=== PATIENT | male | born 1935 | race Caucasian/White ===

== ENCOUNTER 2017-01-03 14:05 | Emergency (ER) | payer MEDICARE, BC ==
[2017-01-03 15:27] LABS: BASOPHILS 0.1 % (0-2); EOSINOPHILS 0.3 % (0-7); HEMATOCRIT 41.7 % (42.0-54.0); HEMOGLOBIN 14.6 g/dL (13.5-17.5); IMMATURE GRANULOCYTES 0.2 % (0-5); LYMPHOCYTES 12.1 % (15-50); MCH 32.1 pg (26.0-34.0); MCV 91.6 fL (80.0-100.0); MEAN PLATELET VOLUME 10.5 fL (7.4-10.4); MONOCYTES 10.2 % (2-11); NEUTROPHILS 77.1 % (40-80); PLATELET COUNT 277 10x3/uL (130-400); RBC 4.55 10x6/uL (4.20-6.10); RDW 13.6 % (11.5-14.5); WBC 10.1 10x3/uL (4.8-10.8)
[2017-01-03 15:48] LABS: APPEARANCE CLEAR (CLEAR); BILIRUBIN NEGATIVE (NEGATIVE); COLOR DK YELLOW (YELLOW); GLUCOSE 50 mg/dL (NEGATIVE); KETONE NEGATIVE (NEGATIVE); NITRITE NEGATIVE (NEGATIVE); PROTEIN TRACE mg/dL (NEGATIVE); UROBILINOGEN NORMAL (NORMAL)
[2017-01-03 15:53] LABS: WHITE CELLS - URINE 0-5 /hpf (0-5)
[2017-01-03 15:54] LABS: BACTERIA FEW /hpf (NONE SEEN); EPITHELIAL CELLS 0-5 /hpf (0-5)
[2017-01-03 16:00] LABS: ALBUMIN 3.8 g/dL (3.4-5.0); ANION GAP 12.8 mmol/L (8-16); BILIRUBIN - TOTAL 0.64 mg/dL (0.2-1.3); CALCIUM 8.8 mg/dL (8.5-10.1); CARBON DIOXIDE 28.2 mmol/L (21.0-32.0); CREATININE - SERUM 1.2 mg/dL (0.6-1.3)
[2017-01-03 16:18] LABS: CREATINE KINASE 153 UL (21-232); TROPONIN-I 0.012 ng/mL (0.000-0.060)
== END 2017-01-03 17:02 | disposition home or self-care (01) ==
LOC: D.ER 14:05
PROVIDERS: Emergency Medicine; Nurse Practitioner Acute Care
DX: E87.6 Hypokalemia (principal); J81.0 Acute pulmonary edema; I44.1 Atrioventricular block, second degree; R00.1 Bradycardia, unspecified; F17.200 Nicotine dependence, unspecified, uncomplicated; F03.90 Unspecified dementia, unspecified severity, without behavioral disturbance, psychotic disturbance, mood disturbance, and anxiety

== ENCOUNTER 2017-01-08 15:11 | Emergency (ER) | payer MEDICARE, BC | END 2017-01-08 16:01 | disposition home or self-care (01) | LOC: D.ER 15:11 | DX: H11.32 Conjunctival hemorrhage, left eye (principal); F03.90 Unspecified dementia, unspecified severity, without behavioral disturbance, psychotic disturbance, mood disturbance, and anxiety; F17.200 Nicotine dependence, unspecified, uncomplicated ==

== ENCOUNTER 2017-05-02 20:06 | Inpatient (IN) | payer MEDICARE, BC ==
--- NOTE | ~2017-05-02 | PN ---
PATIENT:CHYNA DRAKE MEDICAL RECORD: [id number] LOCATION:[facility] ADMISSION DATE: 05/02/17 PROGRESS NOTE DATE OF SERVICE: 05/18/2017 SUBJECTIVE: The patient's case was discussed with staff. He has no new complaint. OBJECTIVE: The patient is in good behavioral control with limited insight about his condition. He tolerates his medicines well. ASSESSMENT: No change in diagnoses. PLAN: Current medicines and therapies have been reviewed and will be maintained. Long-term prognosis is guarded. The patient will be transitioned out of the hospital tomorrow morning if this level of improvement is maintained. TRANSINT:[id number] Voice Confirmation ID: [id number] DOCUMENT ID: [id number] KARLEE EPPS MD at 1337 CC: [id number] DICTATION DATE: 05/18/17 1455 THIMBLE PRESS OPERATOR: 05/18/17 1540 ADM IN [place] [id number] [place] [address]
--- NOTE | ~2017-05-02 | PN ---
PATIENT:CHYNA DRAKE MEDICAL RECORD: [id number] LOCATION:[facility] ADMISSION DATE: 05/02/17 PROGRESS NOTE DATE OF SERVICE: 05/19/2017 SUBJECTIVE: The patient's case was discussed with staff. He has no new complaint. OBJECTIVE: The patient is in good behavioral control, but severely impaired cognitively. ASSESSMENT: No change in diagnoses. PLAN: Brief supportive and educational interventions were made. Long-term prognosis is guarded. TRANSINT:[id number] Voice Confirmation ID: [id number] DOCUMENT ID: [id number] KARLEE EPPS MD at 1331 CC: [id number] DICTATION DATE: 05/19/17 1351 SOLAR INSTALLATION HELPER: 05/19/17 1445 DIS IN 05/19/[address] [address]
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
--- NOTE | ~2017-05-02 | PN ---
PATIENT:CHYNA DRAKE MEDICAL RECORD: [id number] LOCATION:[facility] ADMISSION DATE: 05/02/17 PROGRESS NOTE DATE OF SERVICE: 05/10/2017 SUBJECTIVE: The patient's case was discussed with staff. He has no new complaint. OBJECTIVE: The patient is in good behavioral control with poor insight about his condition. He is often agitated. ASSESSMENT: No change in diagnoses. PLAN: Current medicines have been reviewed and will be maintained. Long-term prognosis is guarded. I am going to give the patient Trilafon at a dose of 2 mg at bedtime to assist with his thought disorganization. TRANSINT:[id number] Voice Confirmation ID: [id number] DOCUMENT ID: [id number] KARLEE EPPS MD at 2008 CC: [id number] DICTATION DATE: 05/10/17 1524 TECHNICAL AIDE: 05/10/17 1619 ADM IN [place] [address] [place] [address]
--- NOTE | ~2017-05-02 | PN ---
PATIENT:CYHNA DARKE MEDICAL RECORD: [id number] LOCATION:[facility] ADMISSION DATE: 05/02/17 PROGRESS NOTE DATE OF SERVICE: 05/16/2017 SUBJECTIVE: The patient's case was discussed with staff. He has no new complaint. OBJECTIVE: The patient is in good behavioral control. He has poor insight about his situation. ASSESSMENT: No change in diagnoses. PLAN: Current medicines and therapies have been reviewed and will be maintained. I anticipate that he can be transitioned out of the hospital in a day or two if this level of improvement is maintained. TRANSINT:[id number] Voice Confirmation ID: [id number] DOCUMENT ID: [id number] KARLEE EPPS MD at 1418 CC: [id number] DICTATION DATE: 05/16/17 184 ENGRAVER: 05/17/17 0216 ADM IN [facility] [address] [place] [address] [id number]
--- NOTE | ~2017-05-02 | PN ---
PATIENT:CHYNA DRAEK MEDICAL RECORD: [id number] LOCATION:[facility] ADMISSION DATE: 05/02/17 PROGRESS NOTE DATE OF SERVICE: 05/07/2017 SUBJECTIVE: The patient's case was discussed with staff. He has no new complaint. OBJECTIVE: The patient is in good behavioral control with limited insight about his condition. He is severely impaired cognitively. ASSESSMENT: No change in diagnoses. PLAN: Supportive and educational interventions were made. Current medicines have been reviewed and will be maintained. TRANSINT:[id number] Voice Confirmation ID: [id number] DOCUMENT ID: [id number] KARLEE EPPS MD at 1430 CC: [id number] DICTATION DATE: 05/07/17 1148 EXHAUST AND MUFFLER FITTER: 05/07/17 1224 ADM IN [place] [place] [address]
--- NOTE | ~2017-05-02 | PN ---
PATIENT:CHYNA DRAKE MEDICAL RECORD: [id number] LOCATION:[facility] ADMISSION DATE: 05/02/17 PROGRESS NOTE DATE OF SERVICE: 05/06/2017 SUBJECTIVE: The patient's case was discussed with staff. He has no new complaint. OBJECTIVE: The patient is in good behavioral control with limited insight about his condition. He generally tolerates his medicines well. He was tested by Dr. Mariaa Nicole or more accurately she attempted to test him, but his dementia is so advanced he could not follow the instructions. Clearly, he has an advanced dementia and is in need of 56-kgdx-h-day supervision. TRANSINT:[id number] Voice Confirmation ID: [id number] DOCUMENT ID: [id number] KARLEE EPPS MD at 1139 CC: [id number] DICTATION DATE: 05/06/17 1330 FOOD COOKING MACHINE OPERATOR: 05/06/17 1940 ADM IN [facility] [address] [place] [address]
--- NOTE | ~2017-05-02 | PN ---
PATIENT:CHYNA DRAKE MEDICAL RECORD: [id number] LOCATION:[facility] ADMISSION DATE: 05/02/17 PROGRESS NOTE DATE OF SERVICE: 05/13/2017 SUBJECTIVE: No new complaint. OBJECTIVE: The patient is very pleasant on exam. 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 On exam, mood is euthymic. Affect is bland. Speech is somewhat tangential. Content of thought is negative for overt psychosis. Sensorium unchanged. ASSESSMENT: No change in diagnoses. PLAN: 1. Maintain current medication. 2. Continue supportive therapy. TRANSINT:[id number] Voice Confirmation ID: [id number] DOCUMENT ID: [id number] BERNADETTE BRIAN III, MD at 1733 CC: [id number] DICTATION DATE: 05/13/17 1432 DIRECTOR CHILD: 05/13/17 1517 ADM IN [place] [address] [place] [address]
--- NOTE | ~2017-05-02 | PN ---
PATIENT:CHYNA DRAKE MEDICAL RECORD: [id number] LOCATION:[facility] ADMISSION DATE: 05/02/17 PROGRESS NOTE DATE OF SERVICE: 05/17/2017 SUBJECTIVE: The patient's case was discussed with staff. He has no new complaint. OBJECTIVE: The patient is in good behavioral control with limited insight about his situation. He generally tolerates his medicines well. ASSESSMENT: No change in diagnoses. PLAN: Brief supportive and educational interventions were made. Long-term prognosis is guarded. TRANSINT:[id number] Voice Confirmation ID: [id number] DOCUMENT ID: [id number] KARLEE EPPS MD at 1426 CC: [id number] DICTATION DATE: 05/17/17 1432 INDEPENDENT MARKETING CONSULTANT: 05/17/17 1444 ADM IN [place] [address] [place] [address]
--- NOTE | ~2017-05-02 | PN ---
PATIENT:CHYNA DRAKE MEDICAL RECORD: [id number] LOCATION:[facility] ADMISSION DATE: 05/02/17 PROGRESS NOTE DATE OF SERVICE: 05/12/2017 SUBJECTIVE: The patient's case was discussed with staff. He has no new complaint. OBJECTIVE: The patient is in good behavioral control with limited insight about his condition. He does tolerate his medicines well. ASSESSMENT: No change in diagnoses. PLAN: Supportive and educational interventions were made. Long-term prognosis is guarded. TRANSINT:[id number] Voice Confirmation ID: [id number] DOCUMENT ID: [id number] KARLEE EPPS MD at 1344 CC: [id number] DICTATION DATE: 05/12/17 1236 METALLURGICAL ENGINEERING TECHNICIAN: 05/12/17 1253 ADM IN [place] [id number] [place] [id number]
--- NOTE | ~2017-05-02 | PN ---
PATIENT:CHYNA DRAKE MEDICAL RECORD: [id number] LOCATION:[facility] ADMISSION DATE: 05/02/17 PROGRESS NOTE DATE OF SERVICE: 05/04/2017 SUBJECTIVE: The patient's case was discussed with staff. He has no new complaint. OBJECTIVE: The patient is in good behavioral control, but very impaired cognitively. He denies any intent to harm himself or others. He really has no significant understanding of why he is here or what happened. ASSESSMENT: No change in diagnoses. PLAN: At this point, I am going to just watch the patient. He has been started on medication that I think will help his condition, but it really has not had an opportunity to be fully effective and he has not been significantly agitated. TRANSINT:[id number] Voice Confirmation ID: [id number] DOCUMENT ID: [id number] KARLEE EPPS MD at 1206 CC: [id number] DICTATION DATE: 05/04/17 1228 DECK MOLDER: 05/04/17 1236 ADM IN [place] [address] [place] [address]
--- NOTE | ~2017-05-02 | PN ---
PATIENT:CHYNA DRAKE MEDICAL RECORD: [id number] LOCATION:[facility] ADMISSION DATE: 05/02/17 PROGRESS NOTE DATE OF SERVICE: 05/14/2017 SUBJECTIVE: No new complaint. OBJECTIVE: The patient has been fairly cooperative. No problematic behavior reported. On exam, mood is euthymic. Affect is bland. Speech is tangential. Content of thought is negative for overt psychosis. Sensorium unchanged. ASSESSMENT: No change in diagnosis. PLAN: 1. Continue current medications. 2. Continue supportive therapy. TRANSINT:[id number] Voice Confirmation ID: [id number] DOCUMENT ID: [id number] BERNADETTE BRIAN III, MD at 1124 CC: [id number] DICTATION DATE: 05/14/17 1151 MEDICAL COLLECTOR: 05/14/17 1203 ADM IN [place] [address] [place] [address]
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
--- NOTE | ~2017-05-02 | PN ---
PATIENT:CHYNA DRAKE MEDICAL RECORD: [id number] LOCATION:[facility] ADMISSION DATE: 05/02/17 PROGRESS NOTE DATE OF SERVICE: 05/09/2017 SUBJECTIVE: The patient's case was discussed with staff. He has no new complaint. OBJECTIVE: The patient denies intent to harm himself or others. He tolerates his medicines well. He slept over 11 hours last night. ASSESSMENT: No change in diagnoses. PLAN: The patient's trazodone will be discontinued. His long-term prognosis is guarded. TRANSINT:[id number] Voice Confirmation ID: [id number] DOCUMENT ID: [id number] KARLEE EPPS MD at 1430 CC: [id number] DICTATION DATE: 05/09/17 1357 PULP OPERATOR: 05/09/17 1556 ADM IN [place] [address] [place] [address]
--- NOTE | ~2017-05-02 | PN ---
PATIENT:CHYNA DRAKE MEDICAL RECORD: [id number] LOCATION:[facility] ADMISSION DATE: 05/02/17 PROGRESS NOTE DATE OF SERVICE: 05/05/2017 SUBJECTIVE: The patient's case was discussed with staff. He has no new complaint. OBJECTIVE: The patient is in good behavioral control with limited insight about his condition. He generally tolerates his medicines well. ASSESSMENT: No change in diagnoses. PLAN: Supportive and educational interventions were made. Senior Care prognosis is guarded. I anticipate the patient can reasonably be transitioned out of the hospital soon if this level of improvement is maintained. TRANSINT:[id number] Voice Confirmation ID: [id number] DOCUMENT ID: [id number] KARLEE EPPS MD at 0912 CC: [id number] DICTATION DATE: 05/05/17 1222 REFINERY PIPELINE OPERATOR: 05/05/17 1231 ADM IN [place] [id number] [place] [id number]
[2017-05-02 21:52] LABS: BASOPHILS 0.4 % (0-2); EOSINOPHILS 3.2 % (0-7); HEMATOCRIT 35.6 % (42.0-54.0); HEMOGLOBIN 11.8 g/dL (13.5-17.5); IMMATURE GRANULOCYTES 0.1 % (0-5); LYMPHOCYTES 23.6 % (15-50); MCH 31.1 pg (26.0-34.0); MCHC 33.1 g/dL (31.0-37.0); MCV 93.7 fL (80.0-100.0); MEAN PLATELET VOLUME 10.2 fL (7.4-10.4); MONOCYTES 10.9 % (2-11); NEUTROPHILS 61.8 % (40-80); PLATELET COUNT 254 10x3/uL (130-400); RDW 14.3 % (11.5-14.5); WBC 7.6 10x3/uL (4.8-10.8)
[2017-05-02 21:57] LABS: APPEARANCE CLEAR (CLEAR); BILIRUBIN NEGATIVE (NEGATIVE); COLOR YELLOW (YELLOW); GLUCOSE NEGATIVE (NEGATIVE); KETONE NEGATIVE (NEGATIVE); NITRITE NEGATIVE (NEGATIVE); PROTEIN NEGATIVE (NEGATIVE); SPECIFIC GRAVITY 1.015 (1.005-1.020); UROBILINOGEN NORMAL (NORMAL)
[2017-05-02 22:02] LABS: ALBUMIN 3.6 g/dL (3.4-5.0); ANION GAP 11.5 mmol/L (8-16); BILIRUBIN - TOTAL 0.32 mg/dL (0.2-1.3); CALCIUM 8.8 mg/dL (8.5-10.1); CARBON DIOXIDE 29.1 mmol/L (21.0-32.0); CREATININE - SERUM 1.3 mg/dL (0.6-1.3); POTASSIUM - SERUM 3.6 mmol/L (3.5-5.1); PROTEIN - SERUM 6.7 g/dL (6.4-8.2)
[2017-05-02 22:16] LABS: UDS - AMPHET NEGATIVE QUAL (NEGATIVE); UDS - BARB NEGATIVE QUAL (NEGATIVE); UDS - BENZO NEGATIVE QUAL (NEGATIVE); UDS - COCAINE NEGATIVE QUAL (NEGATIVE); UDS - OPIATE NEGATIVE QUAL (NEGATIVE); UDS - PCP NEGATIVE QUAL (NEGATIVE); UDS - THC NEGATIVE QUAL (NEGATIVE)
[2017-05-03 06:12] VITALS: BMI 27.2
[2017-05-03 06:33] LABS: CHOL - HDL RATIO 3.4 ratio (2.3-4.9); LDL-HDL RATIO 2.1 ratio (1.5-3.5); THYROID STIMULATING HORMONE 1.68 uIU/mL (0.36-3.74)
[2017-05-03 08:57] VITALS: BP 123/66
[2017-05-03] MEDS ORDERED: TRAZODONE HCL50 MG PO (13:00)
[2017-05-03] MEDS ORDERED: NAMENDA10 MG PO (13:01)
[2017-05-03] MEDS ORDERED: KLOR-CON M2020 MEQ PO (13:02)
[2017-05-03] MEDS ORDERED: ARICEPT10 MG PO (13:06)
[2017-05-03] MEDS ORDERED: NORVASC5 MG PO (13:06)
[2017-05-03] MEDS ORDERED: FUROSEMIDE20 MG PO (13:07)
[2017-05-03] MEDS ORDERED: IPRATROPIUM BR42 MCG NASAL (13:09)
[2017-05-03] MEDS ORDERED: PROTONIX40 MG (13:10)
[2017-05-03] MEDS ORDERED: ZOLOFT50 MG PO (13:14)
[2017-05-03] MEDS ORDERED: LOVASTATIN20 MG PO (13:15)
[2017-05-03 13:41] VITALS: BMI 28.0
[2017-05-03 20:10] VITALS: BP 147/64
[2017-05-04 07:27] LABS: RAPID PLASMA REAGIN Non Reactive (Non Reactive); VITAMIN D 25 HYDROXY 34.4 ng/mL (30.0-100.0)
[2017-05-04 09:18] LABS: FOLATE (FOLIC ACID) - SERUM 13.8 ng/mL (>3.0)
[2017-05-04 09:52] VITALS: BP 110/58
[2017-05-04 19:45] VITALS: BP 110/53
[2017-05-05 09:51] VITALS: BP 142/80
[2017-05-05 23:34] VITALS: BP 133/72
[2017-05-06 09:56] VITALS: BP 139/68
[2017-05-06 20:08] VITALS: BP 146/70
[2017-05-07 07:40] VITALS: BP 162/81
[2017-05-07 19:57] VITALS: BP 140/70
[2017-05-08 07:34] VITALS: BP 166/55
[2017-05-08 23:56] VITALS: BP 161/57
[2017-05-09 08:00] VITALS: BP 129/72
[2017-05-09 19:16] VITALS: BP 138/48
[2017-05-10 07:00] VITALS: BP 125/74
[2017-05-10 19:52] VITALS: BP 159/71
[2017-05-11 10:24] VITALS: BP 169/68
[2017-05-11 14:28] VITALS: BMI 28.0
[2017-05-11 19:54] VITALS: BP 134/68
[2017-05-12 07:41] VITALS: BP 120/69
[2017-05-12 19:56] VITALS: BP 124/64
[2017-05-13 09:28] VITALS: BP 128/77
[2017-05-13 20:10] VITALS: BP 151/55
[2017-05-14 07:00] VITALS: BP 142/76
[2017-05-14 19:57] VITALS: BP 148/83
[2017-05-15 07:52] VITALS: BP 148/82
[2017-05-15 19:53] VITALS: BP 157/058
[2017-05-16 07:00] VITALS: BP 145/70
[2017-05-17 07:00] VITALS: BP 128/70
[2017-05-17] MEDS ORDERED: NORVASC10 MG PO (14:24)
[2017-05-17 20:08] VITALS: BP 130/73
[2017-05-18 10:47] VITALS: BP 141/62
[2017-05-18 20:06] VITALS: BP 137/75
[2017-05-19 09:31] VITALS: BP 129/68
== END 2017-05-19 15:54 | disposition home or self-care (01) | DRG 57 ==
LOC: D.ER 20:06 → D.PSYCH 22:55
PROVIDERS: Physician Assistant Medical; Psychiatry & Neurology Psychiatry
DX: G30.1 Alzheimer's disease with late onset (principal); F02.81 Dementia in other diseases classified elsewhere, unspecified severity, with behavioral disturbance; N17.9 Acute kidney failure, unspecified; Z72.0 Tobacco use; F32.9 Major depressive disorder, single episode, unspecified; Z74.09 Other reduced mobility; E78.5 Hyperlipidemia, unspecified; D64.9 Anemia, unspecified; K21.9 Gastro-esophageal reflux disease without esophagitis; I10 Essential (primary) hypertension

== ENCOUNTER 2017-06-08 16:40 | Inpatient (IN) | payer MEDICARE, BC ==
--- NOTE | ~2017-06-08 | PN ---
PATIENT:CHYNA DRAKE MEDICAL RECORD: [id number] LOCATION:[facility] ADMISSION DATE: 06/08/17 PROGRESS NOTE DATE OF SERVICE: 06/16/2017 SUBJECTIVE: The patient's case was discussed with staff. He has no new complaint. OBJECTIVE: The patient is in good behavioral control with limited insight about his condition. He tolerates his medicines well. ASSESSMENT: No change in diagnoses. PLAN: Current medicines and therapies have been reviewed and will be maintained. Long-term prognosis is guarded. TRANSINT:[id number] Voice Confirmation ID: [id number] DOCUMENT ID: [id number] KARLEE EPPS MD at 0804 CC: [id number] DICTATION DATE: 06/16/17 1418 NO BAKE MOLDER: 06/16/17 1431 ADM IN [facility] [address] [place] [address]
--- NOTE | ~2017-06-08 | PN ---
PATIENT:CHYNA DRAKE MEDICAL RECORD: [id number] LOCATION:[facility] ADMISSION DATE: 06/08/17 PROGRESS NOTE DATE OF SERVICE: 06/13/2017 SUBJECTIVE: The patient's case was discussed with staff. He has no new complaint. OBJECTIVE: The patient required p.r.n. medication today because of significant agitation. He has very limited insight about his condition. ASSESSMENT: No change in diagnoses. PLAN: Brief supportive and educational interventions were made. Custodial prognosis is guarded. TRANSINT:[id number] Voice Confirmation ID: [id number] DOCUMENT ID: [id number] KARLEE EPPS MD at 1344 CC: [id number] DICTATION DATE: 06/13/17 1434 SIEVE GRADER TENDER: 06/13/17 1451 ADM IN [place] [address] [place] [address]
--- NOTE | ~2017-06-08 | PN ---
PATIENT:CHYNA DRAKE MEDICAL RECORD: [id number] LOCATION:[facility] ADMISSION DATE: 06/08/17 PROGRESS NOTE DATE OF SERVICE: 06/17/2017 SUBJECTIVE: No new complaint noted. OBJECTIVE: Staff reports the patient is overall better. He is cooperative with medications. Family does desire to have him return home. On exam, mood was for the most part euthymic. Affect is reserved. Speech is rather terse. Content of thought is negative for overt psychosis. Sensorium unchanged. ASSESSMENT: No change in diagnosis. PLAN: 1. Continue current treatment. 2. Continue supportive therapy. TRANSINT:[id number] Voice Confirmation ID: [id number] DOCUMENT ID: [id number] BERNADETTE BRIAN III, MD at 1037 CC: [id number] DICTATION DATE: 06/17/17 1113 HYPERION ADMINISTRATOR: 06/17/17 1256 ADM IN [place] [address] [place] [id number]
--- NOTE | ~2017-06-08 | PN ---
PATIENT:CHYNA DRAKE MEDICAL RECORD: [id number] LOCATION:[facility] ADMISSION DATE: 06/08/17 PROGRESS NOTE DATE OF SERVICE: 06/22/2017 SUBJECTIVE: The patient's case was discussed with staff. He has no new complaint. OBJECTIVE: The patient is disorganized, but not aggressive. senior care placement is being considered by the family and I am supportive of that. There may be some financial obstacles that are going to be difficult, but obviously we will help with any of that in any reasonable way we can. Overall, the patient is better and is not showing evidence of dangerousness. Whether he goes home or back to the [place] [facility], I would anticipate he could be transitioned out of the hospital in a few days if this level of improvement is maintained. TRANSINT:[id number] Voice Confirmation ID: [id number] DOCUMENT ID: [id number] KARLEE EPPS MD at 1403 CC: [id number] DICTATION DATE: 06/22/17 1458 GAUGE MACHINE OPERATOR: 06/22/17 1612 ADM IN [facility] [address] [place] [address]
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
--- NOTE | ~2017-06-08 | PN ---
PATIENT:CHYNA DRAKE MEDICAL RECORD: [id number] LOCATION:[facility] ADMISSION DATE: 06/08/17 PROGRESS NOTE DATE OF SERVICE: 06/20/2017 SUBJECTIVE: The patient's case was discussed with staff. He has no new complaint. OBJECTIVE: The patient is in good behavioral control with limited insight about his condition. He is tolerating his medicines well. He is eating and sleeping reasonably well. ASSESSMENT: No change in diagnoses. PLAN: I anticipate the patient can be transitioned out of the hospital soon if this level of improvement is maintained. I am recommending 13-bfjf-k-day care and given the complex he has had with his family, it would seem to me that he would be more appropriate for him to be housed in a long-term care facility, but neither he or his family wish to see that happen. TRANSINT:[id number] Voice Confirmation ID: [id number] DOCUMENT ID: [id number] KARLEE EPPS MD at 1016 CC: [id number] DICTATION DATE: 06/20/171911 FAMILY SUPPORT SPECIALIST: 06/21/17 0342 ADM IN [facility] [address] [place] [id number]
--- NOTE | ~2017-06-08 | PN ---
PATIENT:CHYNA DRAKE MEDICAL RECORD: [id number] LOCATION:[facility] ADMISSION DATE: 06/08/17 PROGRESS NOTE DATE OF SERVICE: 06/27/2017 SUBJECTIVE: The patient's case was discussed with staff. He has no new complaint. OBJECTIVE: The patient is in good behavioral control with limited insight about his condition. He tolerates his medicines well. ASSESSMENT: No change in diagnoses. PLAN: Brief supportive and educational interventions were made. Snf prognosis is guarded. TRANSINT:[id number] Voice Confirmation ID: [id number] DOCUMENT ID: [id number] KARLEE EPPS MD at 0826 CC: [id number] DICTATION DATE: 06/27/17 1422 HOLLOW CORE DOOR FRAME ASSEMBLER: 06/27/17 1538 ADM IN [place] [id number] [place] [id number]
--- NOTE | ~2017-06-08 | PN ---
PATIENT:CHYNA DRAKE MEDICAL RECORD: [id number] LOCATION:[facility] ADMISSION DATE: 06/08/17 PROGRESS NOTE DATE OF SERVICE: 06/23/2017 SUBJECTIVE: The patient's case was discussed with staff. He has no new complaint. OBJECTIVE: The patient is in good behavioral control. He has limited insight about his condition. ASSESSMENT: No change in diagnoses. PLAN: Brief supportive and educational interventions were made. Assisted prognosis is guarded. I anticipate the patient can be transitioned to a halfway after the weekend assuming his level of improvement continues and appropriate placement can be found. TRANSINT:[id number] Voice Confirmation ID: [id number] DOCUMENT ID: [id number] KARLEE EPPS MD at 0841 CC: [id number] DICTATION DATE: 06/23/17 1423 PATIENT SUPPORT SPECIALIST: 06/23/17 1434 ADM IN [place] [address] [place] [id number]
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
--- NOTE | ~2017-06-08 | PN ---
PATIENT:CHYNA DRAKE MEDICAL RECORD: [id number] LOCATION:[facility] ADMISSION DATE: 06/08/17 PROGRESS NOTE DATE OF SERVICE: 06/28/2017 SUBJECTIVE: The patient's case was discussed with staff. He has no new complaint. OBJECTIVE: The patient is in good behavioral control. He has no active thoughts of harming himself or others. He generally tolerates his medicines well. ASSESSMENT: No change in diagnoses. PLAN: The patient will be maintained on current medicines. His discharge arrangements have been finalized. His long-term prognosis is guarded. TRANSINT:[id number] Voice Confirmation ID: [id number] DOCUMENT ID: [id number] KARLEE EPPS MD at 1651 CC: [id number] DICTATION DATE: 06/28/17 1411 BED SETTER: 06/28/17 1442 DIS IN 06/29/17 [facility] [address] [place] [address]
--- NOTE | ~2017-06-08 | PN ---
PATIENT:CHYNA DRAKE MEDICAL RECORD: [id number] LOCATION:[facility] ADMISSION DATE: 06/08/17 PROGRESS NOTE DATE OF SERVICE: 06/15/2017 SUBJECTIVE: The patient's case was discussed with staff. He has no new complaint. OBJECTIVE: The patient is in good behavioral control with limited insight about his condition. He tolerates his medicines well. ASSESSMENT: No change in diagnoses. PLAN: Supportive and educational interventions were made. Long-term prognosis is guarded. TRANSINT:[id number] Voice Confirmation ID: [id number] DOCUMENT ID: [id number] KARLEE EPPS MD at 1341 CC: [id number] DICTATION DATE: 06/15/17 1239 PROGRAM ADMIN: 06/15/17 1304 ADM IN [place] [id number] [place] [id number]
--- NOTE | ~2017-06-08 | PN ---
PATIENT:CHYNA DRAKE MEDICAL RECORD: [id number] LOCATION:[facility] ADMISSION DATE: 06/08/17 PROGRESS NOTE DATE OF SERVICE: 06/18/2017 SUBJECTIVE: The patient's case was discussed with staff. He has no new complaint. OBJECTIVE: The patient is in good behavioral control with limited insight about his condition. He tolerates his medicines well. ASSESSMENT: No change in diagnoses. PLAN: Brief supportive and educational interventions were made. I anticipate the patient can be transitioned to the long-term soon if this level of improvement is maintained. TRANSINT:[id number] Voice Confirmation ID: [id number] DOCUMENT ID: [id number] KARLEE EPPS MD at 1844 CC: [id number] DICTATION DATE: 06/18/17 1112 ANIMAL PHYSIOLOGY TEACHER: 06/19/17 0057 ADM IN [address] [address] [place] [address]
--- NOTE | ~2017-06-08 | PN ---
PATIENT:CHYNA DRAKE MEDICAL RECORD: [id number] LOCATION:[facility] ADMISSION DATE: 06/08/17 PROGRESS NOTE DATE OF SERVICE: 06/21/2017 SUBJECTIVE: The patient's case was discussed with staff. He has no new complaint. OBJECTIVE: The patient is in good behavioral control with limited insight about his condition. He generally tolerates his medicines well. ASSESSMENT: No change in diagnoses. PLAN: Brief supportive and educational interventions were made. Long-term prognosis is guarded. TRANSINT:[id number] Voice Confirmation ID: [id number] DOCUMENT ID: [id number] KARLEE EPPS MD at 1444 CC: [id number] DICTATION DATE: 06/21/17 1526 JEWEL OLIVING MACHINE OPERATOR: 06/21/17 1620 ADM IN [address] [id number] [place] [address]
--- NOTE | ~2017-06-08 | PN ---
PATIENT:CHYNA DRAKE MEDICAL RECORD: [id number] LOCATION:[facility] ADMISSION DATE: 06/08/17 PROGRESS NOTE DATE OF SERVICE: 06/14/2017 SUBJECTIVE: The patient's case was discussed with staff. He has no new complaint. OBJECTIVE: The patient is in good behavioral control, although he is severely impaired cognitively. He looks a little sleepy. 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 If it continues or he worsens, I will consider changing him to a different medication. TRANSINT:[id number] Voice Confirmation ID: [id number] DOCUMENT ID: [id number] KARLEE EPPS MD at 1218 CC: [id number] DICTATION DATE: 06/14/17 1456 SENIOR STAFF ACCOUNTANT: 06/14/17 1543 ADM IN [facility] [address] [place] [id number]
--- NOTE | ~2017-06-08 | PN ---
PATIENT:CHYNA DRAKE MEDICAL RECORD: [id number] LOCATION:[facility] ADMISSION DATE: 06/08/17 PROGRESS NOTE DATE OF SERVICE: 06/24/2017 SUBJECTIVE: No new complaint. OBJECTIVE: Overall, the patient is doing well. There is a possibility that family will pursue placement. On exam, mood is euthymic. Affect bland. Speech is terse. Content of thought unchanged. Sensorium unchanged. ASSESSMENT: No change in diagnosis. PLAN: 1. Continue current medication. 2. Continue supportive therapy. TRANSINT:[id number] Voice Confirmation ID: [id number] DOCUMENT ID: [id number] BERNADETTE BRIAN III, MD at 0703 CC: [id number] DICTATION DATE: 06/24/17 1006 MEDICAL INTERN: 06/24/17 1116 ADM IN [place] [address] [place] [address]
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
[~2017-06-08 16:40] MED LIST: ARICEPT10 MG PO; FUROSEMIDE20 MG PO; IPRATROPIUM BR42 MCG NASAL; KLOR-CON M2020 MEQ PO; LOVASTATIN20 MG PO; NAMENDA10 MG PO; NORVASC10 MG PO; NORVASC5 MG PO; PROTONIX40 MG; TRAZODONE HCL50 MG PO; ZOLOFT50 MG PO
[2017-06-08 22:43] VITALS: BMI 23.8
[2017-06-08 23:09] VITALS: BP 164/56; BMI 23.8
[2017-06-09 02:15] LABS: APPEARANCE CLEAR (CLEAR); BILIRUBIN NEGATIVE (NEGATIVE); COLOR YELLOW (YELLOW); GLUCOSE NEGATIVE (NEGATIVE); KETONE NEGATIVE (NEGATIVE); NITRITE NEGATIVE (NEGATIVE); PROTEIN NEGATIVE (NEGATIVE); SPECIFIC GRAVITY 1.005 (1.005-1.020); UROBILINOGEN NORMAL (NORMAL)
[2017-06-09 07:05] LABS: BASOPHILS 0.5 % (0-2); EOSINOPHILS 2.2 % (0-7); HEMATOCRIT 36.2 % (42.0-54.0); HEMOGLOBIN 12.1 g/dL (13.5-17.5); IMMATURE GRANULOCYTES 0.1 % (0-5); LYMPHOCYTES 23.8 % (15-50); MCH 31.3 pg (26.0-34.0); MCHC 33.4 g/dL (31.0-37.0); MCV 93.8 fL (80.0-100.0); MEAN PLATELET VOLUME 9.8 fL (7.4-10.4); MONOCYTES 10.4 % (2-11); PLATELET COUNT 252 10x3/uL (130-400); RBC 3.86 10x6/uL (4.20-6.10); WBC 8.5 10x3/uL (4.8-10.8)
[2017-06-09 07:39] LABS: ALBUMIN 3.6 g/dL (3.4-5.0); BILIRUBIN - TOTAL 0.43 mg/dL (0.2-1.3); CALCIUM 8.7 mg/dL (8.5-10.1); CARBON DIOXIDE 26.5 mmol/L (21.0-32.0); CHOL - HDL RATIO 3.1 ratio (2.3-4.9); CREATININE - SERUM 1.2 mg/dL (0.6-1.3); LDL-HDL RATIO 1.7 ratio (1.5-3.5); POTASSIUM - SERUM 4.5 mmol/L (3.5-5.1); PROTEIN - SERUM 6.6 g/dL (6.4-8.2); THYROID STIMULATING HORMONE 0.96 uIU/mL (0.36-3.74)
[2017-06-09 08:11] VITALS: BP 142/70
[2017-06-09 14:09] VITALS: Wt 83.9 kg
[2017-06-10 07:27] LABS: RAPID PLASMA REAGIN Non Reactive (Non Reactive)
[2017-06-10 10:17] LABS: VITAMIN D 25 HYDROXY 12.3 ng/mL (30.0-100.0)
[2017-06-10 21:20] VITALS: BP 149/65
[2017-06-11 12:49] VITALS: BP 148/78
[2017-06-11 19:08] LABS: FOLATE (FOLIC ACID) - SERUM QNS ng/mL (())
[2017-06-11 21:34] VITALS: BP 155/62
[2017-06-12 07:00] VITALS: BP 153/60
[2017-06-12 21:12] VITALS: BP 158/60
[2017-06-13 07:28] VITALS: BP 110/106
[2017-06-13 21:22] VITALS: BP 138/57
[2017-06-14 09:45] VITALS: BP 123/62
[2017-06-14 19:41] VITALS: BP 144/65
[2017-06-15 08:54] VITALS: BP 116/63
[2017-06-15 20:50] VITALS: BP 153/69
[2017-06-16 08:38] VITALS: BP 129/56
[2017-06-16 22:50] VITALS: BP 113/71
[2017-06-17 09:45] VITALS: BP 151/64
[2017-06-17 19:20] VITALS: BP 117/84
[2017-06-18 09:41] VITALS: BP 140/73
[2017-06-18 20:49] VITALS: BP 144/74
[2017-06-19 07:00] VITALS: BP 147/66
[2017-06-19 19:25] VITALS: BP 136/51
[2017-06-20 20:09] VITALS: BP 132/61
[2017-06-21 07:00] VITALS: BP 124/65
[2017-06-21 19:57] VITALS: BP 142/64
[2017-06-22 07:27] VITALS: BP 130/66
[2017-06-22 21:29] VITALS: BP 139/53
[2017-06-23 10:04] VITALS: BP 148/80
[2017-06-23 20:52] VITALS: BP 142/74
[2017-06-24 08:02] VITALS: BP 142/94
[2017-06-24 20:32] VITALS: BP 133/51
[2017-06-25 07:44] VITALS: BP 124/56
[2017-06-25 19:21] VITALS: BP 153/68
[2017-06-26 07:00] VITALS: BP 140/67
[2017-06-26 19:04] VITALS: BP 130/56
[2017-06-27 07:00] VITALS: BP 105/50
[2017-06-27 19:25] VITALS: BP 137/60
[2017-06-28 07:59] VITALS: BP 148/78
[2017-06-28] MEDS ORDERED: GEODON20 MG PO (14:12)
[2017-06-28] MEDS ORDERED: Mevacor PO (14:12)
[2017-06-28 22:00] VITALS: BP 128/53
[2017-06-29 08:17] VITALS: BP 123/64
== END 2017-06-29 14:00 | DRG 57 ==
LOC: D.ER 16:40 → D.PSYCH 20:55
PROVIDERS: Psychiatry & Neurology Psychiatry
DX: G30.1 Alzheimer's disease with late onset (principal); F02.81 Dementia in other diseases classified elsewhere, unspecified severity, with behavioral disturbance; N17.9 Acute kidney failure, unspecified; I10 Essential (primary) hypertension; E78.5 Hyperlipidemia, unspecified; Z74.09 Other reduced mobility; F32.9 Major depressive disorder, single episode, unspecified; K21.9 Gastro-esophageal reflux disease without esophagitis; D64.9 Anemia, unspecified; L85.3 Xerosis cutis; Z87.891 Personal history of nicotine dependence; Z87.828 Personal history of other (healed) physical injury and trauma

== ENCOUNTER 2019-02-28 12:17 | Inpatient (IN) | payer MEDICARE ==
[~2019-02-28] VITALS: Ht 180.3 cm; Wt 91.8 kg
[~2019-02-28 12:17] MED LIST changes: +GEODON20 MG PO; +Mevacor PO
[2019-02-28 13:00] LABS: BASOPHILS 0.3 % (0-2); EOSINOPHILS 3.2 % (0-7); HEMATOCRIT 40.6 % (42.0-54.0); HEMOGLOBIN 13.3 g/dL (13.5-17.5); IMMATURE GRANULOCYTES 0.3 % (0-5); LYMPHOCYTES 21.4 % (15-50); MCH 31.4 pg (26.0-34.0); MCHC 32.8 g/dL (31.0-37.0); MEAN PLATELET VOLUME 11.4 fL (7.4-10.4); MONOCYTES 10.4 % (2-11); NEUTROPHILS 64.4 % (40-80); PLATELET COUNT 246 10x3/uL (130-400); RBC 4.23 10x6/uL (4.20-6.10); RDW 15.3 % (11.5-14.5)
[2019-02-28 13:12] LABS: CALC OSMOLALITY 284 mosm/kg (275-300); CALCIUM 8.8 mg/dL (8.5-10.1); CARBON DIOXIDE 29.9 mmol/L (21.0-32.0); CHLORIDE - SERUM 107 mmol/L (98-107); CREATININE - SERUM 1.2 mg/dL (0.6-1.3); GLUCOSE 85 mg/dL (74-106); POTASSIUM - SERUM 4.7 mmol/L (3.5-5.1); SODIUM 140 mmol/L (136-145); UREA NITROGEN 32 mg/dL (7-18); eGFR NON AFRICAN AMERICAN 62 mL/min (90-120)
[2019-02-28 13:15] LABS: APTT 35.8 SECONDS (22.8-39.4); INR 1.04 (0.85-1.17); PROTIME 13.2 SECONDS (11.6-15.0)
[2019-02-28 13:34] LABS: ALBUMIN 3.3 g/dL (3.4-5.0); ALKALINE PHOSPHATASE 75 U/L (46-116); ALT (SGPT) 46 U/L (10-68); BILIRUBIN - TOTAL 0.32 mg/dL (0.2-1.3); CKMB 1.8 U/L (0.0-3.6); CREATINE KINASE 50 UL (21-232); MAGNESIUM - SERUM 2.2 mg/dL (1.8-2.4); PROTEIN - SERUM 6.6 g/dL (6.4-8.2)
[2019-02-28 13:35] LABS: TROPONIN-I < 0.017 ng/mL (0.000-0.060)
[2019-02-28 14:30] VITALS: BP 160/85
[2019-02-28 15:00] VITALS: BP 169/79
[2019-02-28 15:30] VITALS: BP 147/65
[2019-02-28 16:00] VITALS: BP 127/79
--- NOTE | 2019-02-28 19:17 | NUR ---
RECEIVED TO ROOM 2123 FROM ER VIA STRETCHER. PT HAS HX OF DEMENTIA, PT ALERT AND ORIENTED TO SELF ONLY. PTS AND GRAND DAUGHTER AT BED SIDE WITH PT HOWEVER HE DOESNT RECOGNIZE WHO THEY ARE. PLACED PT ON TELEMETRY, HR 74 SR.IV TO LEFT AC SL, SITE CLEAN AND DRY, NO REDDNESS OR SWELLING NOTED. PT REFUSING TO WEAR O2, RESPERATIONS UNLABORED. PT DENIES PAIN, COLA OVER ICE GIVEN AT PT REQUEST. RECLINER CHAIR TAKEN TO ROOM FOR TO SLEEP IN.
[2019-02-28] MEDS ORDERED: CALCIUM 600 +1 EAC3 PO (19:40)
[2019-02-28] MEDS ORDERED: DEPAKOTE ER500 MG PO (19:42)
[2019-02-28] MEDS ORDERED: LOVASTATIN20 MG PO (19:42)
[2019-02-28] MEDS ORDERED: IBUPROFEN400 MG PO (19:43)
[2019-02-28] MEDS ORDERED: CENTRUM MEN'S1 EACH PO (19:44)
[2019-02-28] MEDS ORDERED: NORVASC10 MG PO (19:46)
[2019-02-28] MEDS ORDERED: ACETAMINOPHEN325 MG PO (19:48)
[2019-02-28] MEDS ORDERED: VITAMIN D5000 UNIT PO (19:49)
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
--- NOTE | 2019-02-28 23:30 | NUR ---
PT INCONTINENT OF BOWEL, FIREWALL ADMINISTRATOR AND NURSE AT BED SIDE TO CLEAN PT UP, PT SWINGING FISTS AT STAFF AND TRYING TO CLIMB OUT OF BED TO HIT WHEN ATTEMPTS TO CALM PT. CALL PLACED TO LUIS FELIPE SAINI APN.
[2019-03-01 04:41] VITALS: Ht 180.3 cm; Wt 91.8 kg
[2019-03-01 05:50] LABS: BASOPHILS 0.4 % (0-2); EOSINOPHILS 2.8 % (0-7); HEMOGLOBIN 12.6 g/dL (13.5-17.5); IMMATURE GRANULOCYTES 0.2 % (0-5); LYMPHOCYTES 21.8 % (15-50); MCH 30.8 pg (26.0-34.0); MCHC 32.3 g/dL (31.0-37.0); MCV 95.4 fL (80.0-100.0); MEAN PLATELET VOLUME 11.5 fL (7.4-10.4); MONOCYTES 14.3 % (2-11); NEUTROPHILS 60.5 % (40-80); PLATELET COUNT 232 10x3/uL (130-400); RBC 4.09 10x6/uL (4.20-6.10); RDW 15.3 % (11.5-14.5); WBC 9.2 10x3/uL (4.8-10.8)
[2019-03-01 06:29] LABS: ANION GAP 10.4 mmol/L (8-16); BILIRUBIN - TOTAL 0.29 mg/dL (0.2-1.3); CARBON DIOXIDE 26.8 mmol/L (21.0-32.0); CREATININE - SERUM 1.2 mg/dL (0.6-1.3); POTASSIUM - SERUM 4.2 mmol/L (3.5-5.1); PROTEIN - SERUM 6.1 g/dL (6.4-8.2)
[2019-03-01 08:00] VITALS: BP 125/54
--- NOTE | 2019-03-01 10:49 | NUR ---
PT VERY AGITATED AND CONFUSED WHEN AWAKE. PT IS FINALLY RESTING QUIETLY IN BED. WILL ATTEMPT TO GIVE MORNING MEDICATIONS AND DO A BATH WITH WINDOWS ADMIN WHEN HE WAKES BACK UP. RR NONLABORED ON RA. NO IMMEDIATE NEEDS AT THIS TIME. WILL CTM.
[2019-03-01 12:00] VITALS: BP 142/60
--- NOTE | 2019-03-01 12:00 | NUR ---
PT AWAKE NOW AND BEING VERY COOPERATIVE. INTRODUCED MYSELF TO HIM PRIMARY RN FOR TODAYS SHIFT AND HE WAS VERY PLEASANTLY CONFUSED AND FOLLOWING ALL COMMANDS. PT SWALLOWED ALL OF HIS MORNING MEDICATIONS WITHOUT ANY DIFFICULTIES. I CUT UP PTS HAMBURGER AND ASSISTED HIM WITH LUNCH. HE IS EATING AND AT BEDSIDE TO ASSIST. NO CURRENT NEEDS AT THIS TIME. CL IN REACH, BED IN LOWEST, SIDE RAILS X2. WILL CTM.
--- NOTE | 2019-03-01 14:11 | NUR ---
PT ATTEMPTING TO GET OOB. UNABLE TO BE REDIRECTED OR FOLLOW COMMANDS. PT INCONTINENT OF BOWEL AND BLADDER. UPON TRYING TO CLEAN HIM HE STARTED TO YELL AND BECAME VERY AGITATED. PT COBATIVE AND WILL NOT FOLLOW COMMANDS. FINALLY CALMED HIM DOWN AND HAND TO HOLD HIS HANDS TO GET HIM TO COOPERATE. COMPLETE LINEN CHANGE PROVIDED. PULLED PT UP IN BED AND REPOSITIONED FOR COMFORT. PT NOW RESTING QUIETLY AND BEING CALM AND QUIET. AT BEDSIDE. NO CURRENT NEEDS. WILL CTM.
[2019-03-01 17:49] VITALS: BP 153/58
--- NOTE | 2019-03-01 18:45 | NUR ---
PT BEING AGITATED AND COMBATIVE. REFUSING TO ALLOW US TO CHANGE HIM. PT INCONTINENT OF BOWEL AND BLADDER. PROVIDED PTS PRN ATIVAN AND HE CALMED DOWN ENOUGH TO ALLOW US TO CLEAN HIM. COMPLETE BED LINEN CHANGE PROVIDED. REPOSITIONED PT UP IN BED. AT BEDSIDE NO FURTHER NEEDS AT THIS TIME. WILL PASS ON TO NIGHTSHIFT.
[2019-03-01 20:30] VITALS: BP 113/42
[2019-03-02] VITALS (8 sets, daily range): BP systolic 131–149; BP diastolic 48–68
--- NOTE | 2019-03-02 01:21 | NUR ---
RESTING WITH EYES CLOSED, RESPERATIONS EVEN, NO S/S DISTRESS NOTED.
--- NOTE | 2019-03-02 02:37 | NUR ---
I have reviewed this patient and I concur with the Shift Assessment completed by the Licensed Practical Nurse today this shift.
[2019-03-02 06:35] LABS: ANION GAP 11.6 mmol/L (8-16); CALCIUM 8.5 mg/dL (8.5-10.1); CARBON DIOXIDE 26.8 mmol/L (21.0-32.0); CREATININE - SERUM 1.2 mg/dL (0.6-1.3); POTASSIUM - SERUM 4.4 mmol/L (3.5-5.1)
[2019-03-02 06:52] LABS: BASOPHILS 0.2 % (0-2); EOSINOPHILS 3.3 % (0-7); HEMATOCRIT 39.2 % (42.0-54.0); HEMOGLOBIN 12.9 g/dL (13.5-17.5); IMMATURE GRANULOCYTES 0.2 % (0-5); LYMPHOCYTES 19.8 % (15-50); MCH 31.5 pg (26.0-34.0); MCHC 32.9 g/dL (31.0-37.0); MCV 95.8 fL (80.0-100.0); MEAN PLATELET VOLUME 11.9 fL (7.4-10.4); MONOCYTES 12.4 % (2-11); NEUTROPHILS 64.1 % (40-80); PLATELET COUNT 226 10x3/uL (130-400); RBC 4.09 10x6/uL (4.20-6.10); RDW 15.4 % (11.5-14.5); WBC 9.4 10x3/uL (4.8-10.8)
--- NOTE | 2019-03-02 07:45 | NUR ---
ASSESSMENT DONE. DENIES NEEDS
--- NOTE | 2019-03-02 14:24 | NUR ---
I have reviewed this patient and I concur with the Shift Assessment completed by the Licensed Practical Nurse today this shift.
--- NOTE | 2019-03-02 16:50 | NUR ---
AT SIDE. WITHOUT CHANGES OR DISTRESS NOTE AT THIS TIME
--- NOTE | 2019-03-02 17:38 | MORECARE ---
CASE MANAGEMENT DISCHARGE SUMMARY PATIENT: KODI DYE UNIT: [id number] ADM DATE: 03/01/19 AGE: 83 : 37 SEX: M ROOM/BED: D.2124 AUTHOR: HAYDENDOC PHYSICIAN: REFERRING PHYSICIAN: RANDY ÁLVAREZ MD DATE OF SERVICE: 03/02/19 Discharge Plan Patient Name: KODI DYE [facility] [facility] 1935 Planned Disposition: Nursing Facility [facility] Cert Anticipated Discharge Date: Discharge Date: Expected LOS: Initial Reviewer: [email or web address] Initial Review Date: 02/28/2019 Generated: 03/02/19 6:38 pm DCPIA - Discharge Planning Initial Assessment Updated by [email or web address]: Octaviano Glez on 03/02/19 5:33 pm * Is the patient Alert and Oriented? Yes * How many steps to enter\exit or inside your home? NONE * PCP DR MCNEAL * Pharmacy [facility] [place] * Preadmission Environment [facility] * Facility Name [facility] * ADLs Partial Dependent * Partial ADLs (Assistance needed) Bathing Medication Management * Equipment None * Other Equipment ALL MEDICAL EQUIPMENT PROVIDED BY FACILITY * List name and contact numbers for known caregivers / representatives who currently or will assist patient after discharge: DAVID DYE, SPOUSE, * Verbal permission to speak to the caregivers and representatives has been obtained from the patient. N/A * Community resources currently utilized None * Please name any agencies selected above. NONE * Additional services required to return to the preadmission environment? No * Can the patient safely return to the preadmission environment? Yes * Has this patient been hospitalized within the prior 30 days at any hospital? No Coverage Notice Reviewer: [id number] - [place] Notice Issued Date-Time: 02/28/2019 17:05 Notice Type: Medicare Outpatient Observation Notice Notice Delivered To: Family Member Relationship to Patient: Granddaughter Admissions Manager Rn Name: Kodi Dye Delivery Method: HAND - Hand Delivered Gracy Days: Prior Verbal Notification: Recipient Understood Notice: Yes Recipient Signature: Yes Med Rec Note Co-signed by Attending: Coverage Notice Comment: GRANT delivered to and signed by patient's granddaughter (POA). Original given to g.daughter and placed on chart. Patient Name: KODI DYE Page [phone] at 1738 All edits/amendments must be made on the electronic document DICTATION DATE: 03/02/191736 CUTLET MAKER PORK: SHADY 03/02/191736 RPT#: [id number] DC DATE: STATUS: ADM IN [facility] [address] [place] [address] END OF REPORT
--- NOTE | 2019-03-02 17:45 | MORECARE ---
CASE MANAGEMENT DISCHARGE SUMMARY PATIENT: KODI DYE UNIT: [id number] ADM DATE: 03/01/19 AGE: 83 : 37 SEX: M ROOM/BED: D.8939 AUTHOR: HAYDENDOC PHYSICIAN: REFERRING PHYSICIAN: RANDY ÁLVAREZ MD DATE OF SERVICE: 03/02/19 Discharge Plan Patient Name: KODI DYE [facility] [facility] 1935 Planned Disposition: Nursing Facility [facility] Cert Anticipated Discharge Date: Discharge Date: Expected LOS: Initial Reviewer: [email or web address] Initial Review Date: 02/28/2019 Generated: 03/02/19 6:44 pm Comments DCP- Discharge Planning Updated by [email or web address]: Octaviano Glez on 03/02/19 4:[address] Patient Name: KODI DYE Admission Status: ER Accout number: [id number] Admission Date: 03-01-2019 : 1935 Admission Diagnosis: Attending: RANDY ÁLVAREZ Current LOS: 1 Anticipated DC Date: Planned Disposition: Nursing Facility [facility] Cert Primary Insurance: MEDICARE A & B PLANNED EXERNAL PROVIDER: [place], LONG TERM CARE MEDICAID BED Discharge Planning Comments: CM MET WITH PT AND SPOSUE IN ROOM TO DISCUSS DISCHARGE PLANNING AND NEEDS. PT CONFUSED, SPOUSE REPORTS PT HAVING DEMENTIA. REPORTS PT LIVES AT [place] IN SNF CARE AND WILL RETURN THERE AT DISCHARGE. PT WAS UP AND DANCING PRIOR TO ADMISSION AND NOW CANNOT STAND WITH THERAPY. PT WAS APPROVED FOR [facility]% DISABILITY WITH [facility] AND THEY HAVE NOT ACCESSED [place] BENEFITS OF YET BUT IF ABLE, WOULD LIKE PT ON [place] TRANSFER LIST IF THEY WILL PAY COPAY. CHOICE SIGNED FOR [facility] TERM CARE RETURN. CALLED [place] EXPEDITOR, NENITA, , WHO CHECKED LOCAL AND NATIONAL DATABASE AND COULD NOT LOCATE PT AT ALL. NENITA WILL FAX REGISTRATION PAPERS FOR SPOUSE TO FILL OUT AND RETURN TO [place] TO AT NURSES STATION FAX. OF TIME OF CM'S END OF SHIFT, THE PAPERS HAVE NOT COME THROUGH FAX. PT IS NOT ON THE [place] TRANSFER LIST. FOR DISCHARGE, FAX DISCHARGE INFORMATION TO [place] AT [phone], NURSE REPORT TO BE CALLED TO [facility] AT [phone]. [facility] TO ARRANGE VAN TRANSPORTATION FOR DISCHARGE IF PT IS ABLE TO TRANSFER AND SIT SAFELY FOR TRANSPORT. Etl Manager: Octaviano Glez DCPIA - Discharge Planning Initial Assessment Updated by [id number]: Octaviano Glez on 03/02/19 5:33 pm * Is the patient Alert and Oriented? Yes * How many steps to enter\exit or inside your home? NONE * PCP DR MCNEAL * Pharmacy [facility] IN [place] * Preadmission Environment [facility] * Facility Name [facility] * ADLs Partial Dependent * Partial ADLs (Assistance needed) Bathing Medication Management * Equipment None * Other Equipment ALL MEDICAL EQUIPMENT PROVIDED BY FACILITY * List name and contact numbers for known caregivers / representatives who currently or will assist patient after discharge: DAVID DYE, SPOUSE, * Verbal permission to speak to the caregivers and representatives has been obtained from the patient. N/A * Community resources currently utilized None * Please name any agencies selected above. NONE * Additional services required to return to the preadmission environment? No * Can the patient safely return to the preadmission environment? Yes * Has this patient been hospitalized within the prior 30 days at any hospital? No Coverage Notice Reviewer: [id number] Naima Camp Notice Issued Date-Time: 02/28/2019 17:05 Notice Type: Medicare Outpatient Observation Notice Notice Delivered To: Family Member Relationship to Patient: Granddaughter Wire Strander Name: Kodi Dye Delivery Method: HAND - Hand Delivered Gracy Days: Prior Verbal Notification: Recipient Understood Notice: Yes Recipient Signature: Yes Med Rec Note Co-signed by Attending: Coverage Notice Comment: GRANT delivered to and signed by patient's granddaughter (POA). Original given to g.daughter and placed on chart. Reviewer: [id number] - Octaviano Glez Notice Issued Date-Time: 03/02/2019 17:05 Notice Type: Patient Choice Letter Notice Delivered To: Family Member Relationship to Patient: Spouse Wire Strander Name: DAVID DYE Delivery Method: HAND - Hand Delivered Gracy Days: Prior Verbal Notification: Recipient Understood Notice: Yes Recipient Signature: Yes Med Rec Note Co-signed by Attending: Coverage Notice Comment: MAGALIS Last DP export: 03/02/19 4:38 Patient Name: KODI DYE Page [phone] at 1745 All edits/amendments must be made on the electronic document DICTATION DATE: 03/02/191743 BARREL FINISHER: SHADY 03/02/191743 RPT#: [id number] DC DATE: STATUS: ADM IN [facility] [address] [place] [address] END OF REPORT
--- NOTE | 2019-03-02 19:10 | NUR ---
REPORT RECEIVED. PT LAYING IN BED RR EVEN AND UNLABORED ON RA. NO S/SX OF DISTRESS NOTED AT THIS TIME. AT BEDSIDE. PT ALERT BUT UNABLE TO STATE WHERE HE IS OR WHY. NO NEEDS EXPRESSED AT THIS TIME. SRX2, BED ALARM ON. CALL LIGHT IN REACH. WILL CTM.
[2019-03-03] VITALS: BP 133/56
--- NOTE | 2019-03-03 02:26 | NUR ---
PTS HEART RATE KEEPS DROPPING TO 30's AND THEN BACK UP TO 60"S. NO S/SX OF DISTRESS NOTED.
[2019-03-03 04:00] VITALS: BP 137/61
[2019-03-03 04:55] LABS: BASOPHILS 0.4 % (0-2); EOSINOPHILS 3.8 % (0-7); HEMATOCRIT 40.3 % (42.0-54.0); HEMOGLOBIN 13.1 g/dL (13.5-17.5); IMMATURE GRANULOCYTES 0.4 % (0-5); MCH 30.8 pg (26.0-34.0); MCHC 32.5 g/dL (31.0-37.0); MCV 94.6 fL (80.0-100.0); MEAN PLATELET VOLUME 12.8 fL (7.4-10.4); MONOCYTES 11.7 % (2-11); NEUTROPHILS 62.7 % (40-80); PLATELET COUNT 122 10x3/uL (130-400); RBC 4.26 10x6/uL (4.20-6.10); RDW 15.3 % (11.5-14.5); WBC 8.5 10x3/uL (4.8-10.8)
[2019-03-03 05:13] LABS: CALC OSMOLALITY 281 mosm/kg (275-300); CALCIUM 8.7 mg/dL (8.5-10.1); CARBON DIOXIDE 26.3 mmol/L (21.0-32.0); CHLORIDE - SERUM 106 mmol/L (98-107); GLUCOSE 80 mg/dL (74-106); POTASSIUM - SERUM 4.3 mmol/L (3.5-5.1); SODIUM 139 mmol/L (136-145); UREA NITROGEN 26 mg/dL (7-18); eGFR NON AFRICAN AMERICAN 76 mL/min (90-120)
--- NOTE | 2019-03-03 07:30 | NUR ---
ALERT, BUT CONFUSED AT TIMES. PT IS A DNR. TELEMERTY SHOWS HR FROM 30 TO 70. O2 AT 2 L/M PER NC. LEFT AC SL. AT BEDSIDE AND BED ALARM ON PT. PT IS A DNR. LEFT AC SL. SR UP WITH CALL LIGHT IN REACH
[2019-03-03 09:05] VITALS: BP 131/56
[2019-03-03 12:41] VITALS: BP 126/58
--- NOTE | 2019-03-03 14:28 | NUR ---
I have reviewed this patient and I concur with the Shift Assessment completed by the Licensed Practical Nurse today this shift.
[2019-03-03 16:11] VITALS: BP 115/45
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
--- NOTE | 2019-03-03 20:00 | NUR ---
PIV OUT TO LEFT AC, CATHETER TIP INTACT. RESITED 22G TO LEFT HAND X1 ATTEMPT. PT TOLERATED WELL.
--- NOTE | 2019-03-04 03:34 | NUR ---
WAS ABLE TO PUT TELEMETRY BACK ON PT. PT RESTING QUIETLY NOW. AT BEDSIDE AND STATES THAT PT IS COUGHING. NO FURTHER NEEDS EXPRESSED. WILL CTM.
[2019-03-04 04:45] VITALS: BP 129/51
[2019-03-04 05:29] LABS: BASOPHILS 0.2 % (0-2); EOSINOPHILS 3.1 % (0-7); HEMATOCRIT 38.2 % (42.0-54.0); HEMOGLOBIN 12.6 g/dL (13.5-17.5); IMMATURE GRANULOCYTES 0.2 % (0-5); LYMPHOCYTES 20.4 % (15-50); MCH 31.1 pg (26.0-34.0); MCV 94.3 fL (80.0-100.0); MEAN PLATELET VOLUME 11.6 fL (7.4-10.4); MONOCYTES 14.3 % (2-11); NEUTROPHILS 61.8 % (40-80); RBC 4.05 10x6/uL (4.20-6.10); WBC 9.2 10x3/uL (4.8-10.8)
[2019-03-04 05:31] LABS: PLATELET COUNT 239 10x3/uL (130-400)
[2019-03-04 05:45] LABS: ANION GAP 11.6 mmol/L (8-16); CALCIUM 8.2 mg/dL (8.5-10.1); CARBON DIOXIDE 25.8 mmol/L (21.0-32.0); CREATININE - SERUM 1.1 mg/dL (0.6-1.3)
[2019-03-04 05:56] LABS: POTASSIUM - SERUM 3.4 mmol/L (3.5-5.1)
--- NOTE | 2019-03-04 12:10 | MORECARE ---
CASE MANAGEMENT DISCHARGE SUMMARY PATIENT: KODI DYE UNIT: [id number] ADM DATE: 03/01/19 AGE: 84 : 37 SEX: M ROOM/BED: D.5614 AUTHOR: HERLINDA BLAKE PHYSICIAN: REFERRING PHYSICIAN: RANDY ÁLVAREZ MD DATE OF SERVICE: 03/04/19 Discharge Plan Patient Name: KODI DYE Facility: [facility]:[place] : 1935 Planned Disposition: Nursing Facility [facility] Cert Anticipated Discharge Date: Discharge Date: Expected LOS: Initial Reviewer: [id number] Initial Review Date: 02/28/2019 Generated: 03/04/19 1:10 pm Comments DCP- Discharge Planning Updated by [id number]: Nancy Trinh on 03/04/19 11:[address] Patient Name: KODI DYE Encounter No: [id number] : 1935 Primary Insurance: MEDICARE A & B Anticipated DC Date: Planned Disposition: Nursing Facility [facility] Cert External Planned Provider: : DCP follow-up note: Patient and family in agreement with discharge plan. No changes to plan. FOR DISCHARGE, FAX DISCHARGE INFORMATION TO [facility] AT [phone], NURSE REPORT TO BE CALLED TO CIARA ODEN AT [facility] TO [phone]. DEAN AT [facility] IS ARRANGING VAN TRANSPORTATION FOR DISCHARGE. SHE WILL CALL US BACK WITH A TIME. WILL BE AFTER 2PM. Case management will follow and assist as needed. Nancy Trinh DCP- Discharge Planning Updated by [id number]: Octaviano Glez on 03/02/19 4:[address] Patient Name: KODI DYE Admission Status: ER Accout number: [id number] Admission Date: 03-01-2019 : 1935 Admission Diagnosis: Attending: RANDY ÁLVAREZ Current LOS: 1 Anticipated DC Date: Planned Disposition: Nursing Facility [facility] Cert Primary Insurance: MEDICARE A & B PLANNED EXERNAL PROVIDER: [place], LONG TERM CARE MEDICAID BED Discharge Planning Comments: CM MET WITH PT AND SPOSUE IN ROOM TO DISCUSS DISCHARGE PLANNING AND NEEDS. PT CONFUSED, SPOUSE REPORTS PT HAVING DEMENTIA. REPORTS PT LIVES AT [facility] AND WILL RETURN THERE AT DISCHARGE. PT WAS UP AND DANCING PRIOR TO ADMISSION AND NOW CANNOT STAND WITH THERAPY. PT WAS APPROVED FOR 100% DISABILITY WITH [facility] AND THEY HAVE NOT ACCESSED [place] BEN[place] OF YET BUT IF ABLE, WOULD LIKE PT ON [place] TRANSFER LIST IF THEY WILL PAY COPAY. CHOICE SIGNED FOR [facility] RETURN. CM CALLED [place] EXPEDITOR, NENITA, , WHO CHECKED LOCAL AND NATIONAL DATABASE AND COULD NOT LOCATE PT AT ALL. NENITA WILL FAX REGISTRATION PAPERS FOR SPOUSE TO FILL OUT AND RETURN TO AL TO AT NURSES STATION FAX. OF TIME OF 'S END OF SHIFT, THE PAPERS HAVE NOT COME THROUGH FAX. PT IS NOT ON THE [place] TRANSFER LIST. FOR DISCHARGE, FAX DISCHARGE INFORMATION TO [facility] AT [phone], NURSE REPORT TO BE CALLED TO [facility] AT [phone]. [facility] TO ARRANGE VAN TRANSPORTATION FOR DISCHARGE IF PT IS ABLE TO TRANSFER AND SIT SAFELY FOR TRANSPORT. Wind Turbine Mechanic: Octaviano Glze DCPIA - Discharge Planning Initial Assessment Updated by [id number]: Octaviano Glez on 03/02/19 5:33 pm * Is the patient Alert and Oriented? Yes * How many steps to enter\exit or inside your home? NONE * PCP DR MCNEAL * Pharmacy [facility] [place] * Preadmission Environment [facility] * Facility Name [facility] * ADLs Partial Dependent * Partial ADLs (Assistance needed) Bathing Medication Management * Equipment None * Other Equipment ALL MEDICAL EQUIPMENT PROVIDED BY FACILITY * List name and contact numbers for known caregivers / representatives who currently or will assist patient after discharge: DAVID DYE, SPOUSE, * Verbal permission to speak to the caregivers and representatives has been obtained from the patient. N/A * Community resources currently utilized None * Please name any agencies selected above. NONE * Additional services required to return to the preadmission environment? No * Can the patient safely return to the preadmission environment? Yes * Has this patient been hospitalized within the prior 30 days at any hospital? No Coverage Notice Reviewer: [id number] - Ling Camp Notice Issued Date-Time: 02/28/2019 17:05 Notice Type: Medicare Outpatient Observation Notice Notice Delivered To: Family Member Relationship to Patient: Granddaughter Overcoil Stepper Name: Kodi Dye Delivery Method: HAND - Hand Delivered Gracy Days: Prior Verbal Notification: Recipient Understood Notice: Yes Recipient Signature: Yes Med Rec Note Co-signed by Attending: Coverage Notice Comment: GRANT delivered to and signed by patient's granddaughter (POA). Original given to g.daughter and placed on chart. Reviewer: [id number] - Octaviano Glez Notice Issued Date-Time: 03/02/2019 17:05 Notice Type: Patient Choice Letter Notice Delivered To: Family Member Relationship to Patient: Spouse Overcoil Stepper Name: DAVID DYE Delivery Method: HAND - Hand Delivered Gracy Days: Prior Verbal Notification: Recipient Understood Notice: Yes Recipient Signature: Yes Med Rec Note Co-signed by Attending: Coverage Notice Comment: MAGALIS Last DP export: 03/02/19 4:45 Patient Name: KODI DYE Page [id number] at 1210 All edits/amendments must be made on the electronic document DICTATION DATE: 03/04/19 1210 SENIOR COMMISSIONS ANALYST: SHADY 03/04/19 1210 RPT#: [id number] DC DATE: STATUS: ADM IN [facility] [address] [place] [address] END OF REPORT
--- NOTE | 2019-03-04 13:18 | NUR ---
RESTING IN BED WITH EYES CLOSED. SPOUSE AT BEDSIDE. REPORT CALLED TO CECILLE GONZALEZ AT [facility]. TRANSPORTATION EXPECTED TO ARRIVE AFTER 1400. CONTINUE SAFETY PRECAUTIONS AND PLAN OF CARE.
--- NOTE | 2019-03-04 15:55 | NUR ---
CONFUSED. SPOUSE AT BEDSIDE. DC LT HAND AND LT AC IV TIP INTACT. [facility] ARRIVES. ASSIST TO WHEELCHAIR. REMAINS FREE FROM INJURY.
--- NOTE | 2019-03-05 08:58 | MORECARE ---
CASE MANAGEMENT DISCHARGE SUMMARY PATIENT: KODI DYE UNIT: [id number] ADM DATE: 03/01/19 AGE: 84 : 37 SEX: M ROOM/BED: D.6679 AUTHOR: HERLINDA BLAKE PHYSICIAN: REFERRING PHYSICIAN: RANDY ÁLVAREZ MD DATE OF SERVICE: 03/05/19 Discharge Plan Patient Name: KODI DYE Facility: [facility]:[place] : 1935 Planned Disposition: Nursing Facility [facility] Cert Anticipated Discharge Date: 03/04/19 Discharge Date: 03/04/2019 Expected LOS: 3 Initial Reviewer: [id number] Initial Review Date: 02/28/2019 Generated: 03/05/19 9:57 am Comments DCP- Discharge Planning Updated by [id number]: Nancy Trinh on 03/04/19 11:[address] Patient Name: KODI DYE Encounter No: [id number] : 1935 Primary Insurance: MEDICARE A & B Anticipated DC Date: Planned Disposition: Nursing Facility [facility] Cert External Planned Provider: : DCP follow-up note: Patient and family in agreement with discharge plan. No changes to plan. FOR DISCHARGE, FAX DISCHARGE INFORMATION TO [facility] AT [phone], NURSE REPORT TO BE CALLED TO CIARA ODEN AT [facility] TO [phone]. DEAN AT [facility] IS ARRANGING VAN TRANSPORTATION FOR DISCHARGE. SHE WILL CALL US BACK WITH A TIME. WILL BE AFTER 2PM. Case management will follow and assist as needed. Nancy Trinh DCP- Discharge Planning Updated by [id number]: Octaviano Glez on 03/02/19 4:[address] Patient Name: KODI DYE Admission Status: ER Accout number: [id number] Admission Date: 03-01-2019 : 1935 Admission Diagnosis: Attending: RANDY ÁLVAREZ Current LOS: 1 Anticipated DC Date: Planned Disposition: Nursing Facility [facility] Cert Primary Insurance: MEDICARE A & B PLANNED EXERNAL PROVIDER: [place], LONG TERM CARE MEDICAID BED Discharge Planning Comments: CM MET WITH PT AND SPOSUE IN ROOM TO DISCUSS DISCHARGE PLANNING AND NEEDS. PT CONFUSED, SPOUSE REPORTS PT HAVING DEMENTIA. REPORTS PT LIVES AT [facility] IN [facility] AND WILL RETURN THERE AT DISCHARGE. PT WAS UP AND DANCING PRIOR TO ADMISSION AND NOW CANNOT STAND WITH THERAPY. PT WAS APPROVED FOR 100% DISABILITY WITH [facility] AND THEY HAVE NOT ACCESSED [place] BENEFITS OF YET BUT IF ABLE, WOULD LIKE PT ON [place] TRANSFER LIST IF THEY WILL PAY COPAY. CHOICE SIGNED FOR [facility] RETURN. CM CALLED [place] EXPEDITOR, NENITA, , WHO CHECKED LOCAL AND NATIONAL DATABASE AND COULD NOT LOCATE PT AT ALL. NENITA WILL FAX REGISTRATION PAPERS FOR SPOUSE TO FILL OUT AND RETURN TO [place] TO AT NURSES STATION FAX. OF TIME OF 'S END OF SHIFT, THE PAPERS HAVE NOT COME THROUGH FAX. PT IS NOT ON THE [place] TRANSFER LIST. FOR DISCHARGE, FAX DISCHARGE INFORMATION TO [facility] AT [phone], NURSE REPORT TO BE CALLED TO [facility] AT [phone]. [facility] TO ARRANGE VAN TRANSPORTATION FOR DISCHARGE IF PT IS ABLE TO TRANSFER AND SIT SAFELY FOR TRANSPORT. Trade Embalmer: Octaviano Glez DCPIA - Discharge Planning Initial Assessment Updated by [id number]: Octaviano Glez on 03/02/19 5:33 pm * Is the patient Alert and Oriented? Yes * How many steps to enter\exit or inside your home? NONE * PCP DR MCNEAL * Pharmacy [facility] [place] * Preadmission Environment [facility] * Facility Name [facility] * ADLs Partial Dependent * Partial ADLs (Assistance needed) Bathing Medication Management * Equipment None * Other Equipment ALL MEDICAL EQUIPMENT PROVIDED BY FACILITY * List name and contact numbers for known caregivers / representatives who currently or will assist patient after discharge: DAVID DYE, SPOUSE, * Verbal permission to speak to the caregivers and representatives has been obtained from the patient. N/A * Community resources currently utilized None * Please name any agencies selected above. NONE * Additional services required to return to the preadmission environment? No * Can the patient safely return to the preadmission environment? Yes * Has this patient been hospitalized within the prior 30 days at any hospital? No Coverage Notice Reviewer: [id number] Naima Camp Notice Issued Date-Time: 02/28/2019 17:05 Notice Type: Medicare Outpatient Observation Notice Notice Delivered To: Family Member Relationship to Patient: Granddaughter Enrobing Machine Operator Name: Kodi Dye Delivery Method: HAND - Hand Delivered Gracy Days: Prior Verbal Notification: Recipient Understood Notice: Yes Recipient Signature: Yes Med Rec Note Co-signed by Attending: Coverage Notice Comment: GRANT delivered to and signed by patient's granddaughter (POA). Original given to g.daughter and placed on chart. Reviewer: [id number] - Octaviano Glez Notice Issued Date-Time: 03/02/2019 17:05 Notice Type: Patient Choice Letter Notice Delivered To: Family Member Relationship to Patient: Spouse Enrobing Machine Operator Name: DAVID DYE Delivery Method: HAND - Hand Delivered Gracy Days: Prior Verbal Notification: Recipient Understood Notice: Yes Recipient Signature: Yes Med Rec Note Co-signed by Attending: Coverage Notice Comment: MAGALIS Reviewer: [id number] - Nancy Trinh Notice Issued Date-Time: 03/04/2019 12:08 Notice Type: IM Discharge Notice Notice Delivered To: Family Member Relationship to Patient: Enrobing Machine Operator Name: DAVID DYE Delivery Method: HAND - Hand Delivered Gracy Days: Prior Verbal Notification: Recipient Understood Notice: Yes Recipient Signature: Yes Med Rec Note Co-signed by Attending: Coverage Notice Comment: Last DP export: 03/04/19 11:10 Patient Name: KODI DYE Page 51252 at 0858 All edits/amendments must be made on the electronic document DICTATION DATE: 03/05/19856 WORSTED WINDER: SHADY 03/05/19856 RPT#: [id number] DC DATE:03/04/19 STATUS: DIS IN [facility] [address] [place] [address] END OF REPORT
--- NOTE | 2019-03-05 09:05 | MORECARE ---
CASE MANAGEMENT DISCHARGE SUMMARY PATIENT: KODI DYE UNIT: [id number] ADM DATE: 03/01/19 AGE: 84 : 37 SEX: M ROOM/BED: D.0747 AUTHOR: HERLINDA BLAKE PHYSICIAN: REFERRING PHYSICIAN: RANDY ÁLVAREZ MD DATE OF SERVICE: 03/05/19 Discharge Plan Patient Name: KODI DYE Facility: [facility]:[place] : 1935 Planned Disposition: Nursing Facility [facility] Cert Anticipated Discharge Date: 03/04/19 Discharge Date: 03/04/2019 Expected LOS: 3 Initial Reviewer: [id number] Initial Review Date: 02/28/2019 Generated: 03/05/19 10:05 am Comments DCP- Discharge Planning Updated by [id number]: Nancy Trinh on 03/04/19 11:[address] Patient Name: KODI DYE Encounter No: [id number] : 1935 Primary Insurance: MEDICARE A & B Anticipated DC Date: Planned Disposition: Nursing Facility [facility] Cert External Planned Provider: : DCP follow-up note: Patient and family in agreement with discharge plan. No changes to plan. FOR DISCHARGE, FAX DISCHARGE INFORMATION TO [facility] AT [phone], NURSE REPORT TO BE CALLED TO CIARA ODEN AT [facility] TO [phone]. DEAN AT [facility] IS ARRANGING VAN TRANSPORTATION FOR DISCHARGE. SHE WILL CALL US BACK WITH A TIME. WILL BE AFTER 2PM. Case management will follow and assist as needed. Nancy Trinh DCP- Discharge Planning Updated by [id number]: Octaviano Glez on 03/02/19 4:[address] Patient Name: KODI DYE Admission Status: ER Accout number: [id number] Admission Date: 03-01-2019 : 1935 Admission Diagnosis: Attending: RANDY ÁLVAREZ Current LOS: 1 Anticipated DC Date: Planned Disposition: Nursing Facility [facility] Cert Primary Insurance: MEDICARE A & B PLANNED EXERNAL PROVIDER: [place], LONG TERM CARE MEDICAID BED Discharge Planning Comments: CM MET WITH PT AND SPOSUE IN ROOM TO DISCUSS DISCHARGE PLANNING AND NEEDS. PT CONFUSED, SPOUSE REPORTS PT HAVING DEMENTIA. REPORTS PT LIVES AT [facility] AND WILL RETURN THERE AT DISCHARGE. PT WAS UP AND DANCING PRIOR TO ADMISSION AND NOW CANNOT STAND WITH THERAPY. PT WAS APPROVED FOR 100% DISABILITY WITH [facility] AND THEY HAVE NOT ACCESSED [place] BENEFITS OF YET BUT IF ABLE, WOULD LIKE PT ON [place] TRANSFER LIST IF THEY WILL PAY COPAY. CHOICE SIGNED FOR [facility] RETURN. CM CALLED [place] EXPEDITOR, NENITA, , WHO CHECKED LOCAL AND NATIONAL DATABASE AND COULD NOT LOCATE PT AT ALL. NENITA WILL FAX REGISTRATION PAPERS FOR SPOUSE TO FILL OUT AND RETURN TO [place] TO AT NURSES STATION FAX. OF TIME OF 'S END OF SHIFT, THE PAPERS HAVE NOT COME THROUGH FAX. PT IS NOT ON THE [place] TRANSFER LIST. FOR DISCHARGE, FAX DISCHARGE INFORMATION TO [facility] AT [phone], NURSE REPORT TO BE CALLED TO [facility] AT [phone]. [facility] TO ARRANGE VAN TRANSPORTATION FOR DISCHARGE IF PT IS ABLE TO TRANSFER AND SIT SAFELY FOR TRANSPORT. Gum Dipper: Octaviano Glez DCPIA - Discharge Planning Initial Assessment Updated by [id number]: Octaviano Glez on 03/02/19 5:33 pm * Is the patient Alert and Oriented? Yes * How many steps to enter\exit or inside your home? NONE * PCP DR MCNEAL * Pharmacy [facility] [place] * Preadmission Environment [facility] * Facility Name [facility] * ADLs Partial Dependent * Partial ADLs (Assistance needed) Bathing Medication Management * Equipment None * Other Equipment ALL MEDICAL EQUIPMENT PROVIDED BY FACILITY * List name and contact numbers for known caregivers / representatives who currently or will assist patient after discharge: DAVID DYE, SPOUSE, * Verbal permission to speak to the caregivers and representatives has been obtained from the patient. N/A * Community resources currently utilized None * Please name any agencies selected above. NONE * Additional services required to return to the preadmission environment? No * Can the patient safely return to the preadmission environment? Yes * Has this patient been hospitalized within the prior 30 days at any hospital? No Coverage Notice Reviewer: [id number] Naima Trinh Notice Issued Date-Time: 03/04/2019 12:08 Notice Type: IM Discharge Notice Notice Delivered To: Family Member Relationship to Patient: Winchman/Crane Operator Name: DAVID DYE Delivery Method: HAND - Hand Delivered Gracy Days: Prior Verbal Notification: Recipient Understood Notice: Yes Recipient Signature: Yes Med Rec Note Co-signed by Attending: Coverage Notice Comment: Reviewer: [id number] - Octaviano Glez Notice Issued Date-Time: 03/02/2019 17:05 Notice Type: Patient Choice Letter Notice Delivered To: Family Member Relationship to Patient: Spouse Winchman/Crane Operator Name: DAVID DYE Delivery Method: HAND - Hand Delivered Gracy Days: Prior Verbal Notification: Recipient Understood Notice: Yes Recipient Signature: Yes Med Rec Note Co-signed by Attending: Coverage Notice Comment: MAGALIS Reviewer: [id number] Naima Camp Notice Issued Date-Time: 02/28/2019 17:05 Notice Type: Medicare Outpatient Observation Notice Notice Delivered To: Family Member Relationship to Patient: Granddaughter Winchman/Crane Operator Name: Kodi Dye Delivery Method: HAND - Hand Delivered Gracy Days: Prior Verbal Notification: Recipient Understood Notice: Yes Recipient Signature: Yes Med Rec Note Co-signed by Attending: Coverage Notice Comment: GRANT delivered to and signed by patient's granddaughter (POA). Original given to g.daughter and placed on chart. Last DP export: 03/04/19 11:10 Patient Name: KODI DYE Page 83993 at 0905 All edits/amendments must be made on the electronic document DICTATION DATE: 03/05/19904 IRRIGATION SPECIALIST: SHADY 03/05/19904 RPT#: [id number] DC DATE:03/04/19 STATUS: DIS IN [facility] [address] [place] [address] END OF REPORT
== END 2019-03-04 15:57 | DRG 309 ==
LOC: D.ER 12:17 → D.M2 16:51 → OBSVTIME 17:49 → D.M2 03-01 15:42
PROVIDERS: Emergency Medicine; Family Medicine; ADMIT Legal Medicine; ATTEND Legal Medicine
DX: I44.1 Atrioventricular block, second degree (principal); F02.81 Dementia in other diseases classified elsewhere, unspecified severity, with behavioral disturbance; I35.0 Nonrheumatic aortic (valve) stenosis; R00.1 Bradycardia, unspecified; G30.9 Alzheimer's disease, unspecified; I10 Essential (primary) hypertension; D69.6 Thrombocytopenia, unspecified

== ENCOUNTER 2019-11-05 07:44 | Inpatient (IN) | payer MEDICARE ==
[2019-11-05] VITALS (15 sets, daily range): BP systolic 84–184; BP diastolic 37–114; BMI 28.9
[~2019-11-05] VITALS: Ht 180.3 cm; Wt 89.0 kg
--- NOTE | ~2019-11-05 | HEMODYNAMI ---
PATIENT:CHYNA DRAKE MEDICAL RECORD: [id number] : 39 [id number] ADMISSION DATE: 11/05/19 Generatedon:11/05/201911:08 Patient name: CHYNA DRAKE Patient #: [id number] SSN: [id number] : 1935 Date of study: 11/05/2019 Page: Of Hemodynamic Procedure Report Patient Data Patient Demographics Procedure consent was obtained First Name: CHYNA Gender: Male Last Name: NOELLE : 1935 [facility] Initial: BECCA Age: 84 year(s) Patient #: [id number] Race: SSN: [id number] Additional ID: [id number] Contact details Address: [address] [place] [address] State: [place] City: [place] Zip code: [address] Past Medical History Allergies: No known allergies Admission Admission Data Admission Date: 11/05/2019 Admission Time: 7:44 Arrival Date: 11/05/2019 Arrival Time: 0:00 Admit Source: Emergency Insurance Payor: Medicare department [facility] #: [id number] Height (in.): 71 BSA: 1.97 (m2) Height (cm.): 180.34 BMI: 23.71 (kg/m2) Weight (lbs.): 170 Weight (kg.): 77.11 Lab Results Lab Result Date: 11/05/2019 Lab Result Time: 0:00 Biochemistry Name Units Result Min Max BUN mg/dl 48 --(----)-* 7 18 CK-MB ng/ml 2.2 --(--*-)-- 0 3.6 Creatinine mg/dl 1.8 --(----)-* 0.6 1.3 eGFR ml/min 38 *-(----)-- 90 120 NONAFRICAN Troponin l ng/ml 0.017 --(-*--)-- 0 0.06 CBC Name Units Result Min Max Hematocrit % 36.9 *-(----)-- 42 54 Hemoglobin g/dl 11.6 *-(----)-- 13.5 17.5 Procedure Procedure Types Cath Procedure Diagnostic Procedure Temporary Pacemaker Procedure Description Procedure Date Procedure Date: 11/05/2019 Procedure Start Time: 10:40 Procedure End Time: 10:56 Procedure Staff Name Function Will Rawls MD Performing Physician Sarah Yanez RT Monitor Elizabeth Barreto RT Scrub Kranthi Chun RN Nurse Procedure Data Cath Procedure Fluoroscopy Diagnostic fluoroscopy Total fluoroscopy Time: 0.7 time: 0.7 min min Diagnostic fluoroscopy Total fluoroscopy dose: dose: 20.1 mGy 20.1 mGy Contrast Material Contrast Material Type Amount (ml) Isovue 370 0 Entry Location Entry Primary Successful Side Size Upsize Upsize Entry Closure Succes sful Closure Location (Fr) 1 (Fr) 2 (Fr) Remarks Device Remarks Femoral Right 6 Fr Sheath artery Short sutured in place Estimated blood loss: 10 ml Procedure Complications No complications Procedure Medications Medication Administration Route Dosage Oxygen 6 0.9% NaCl I.V. 100 ml/hr Lidocaine 2% added to field 20 Heparin Flush Bag added to field 1 bags (1000units/500ml NS) Versed I.V. 1 mg Fentanyl I.V. 50 mcg Versed I.V. 1 mg Fentanyl I.V. 50 mcg Hemodynamics Rest BSA: 1.97 (m2) HGB: 11.6 (g/dl) O2 Consumption: Estimated: 196.98 (ml/min) O2 Co nsumption indexed: Estimated:99.99 (ml/min/m) Heart Rate: 33 (bpm) Snapshots Pre Cath Intra NCS Post Cath Vital Signs Time Heart Resp SPO2 etCO2 NIBP (mmHg) Rhythm Pain Sedation Rate (ipm) (%) (mmHg) Status Level (bpm) 10:32:30 30 14 100 0 147/79(117) NSR (Missing) 10(A) 10:37:29 31 13 92 0 Measuring NSR (Missing) 10(A) 10:37:58 34 11 99 0 131/51(101) NSR (Missing) 10(A) 10:42:22 30 19 99 0 118/44(89) NSR (Missing) 9(A) 10:46:28 32 19 100 0 105/59(96) NSR (Missing) 9(A) 10:50:37 70 13 99 0 111/57(97) NSR (Missing) 9(A) 10:54:45 72 12 99 0 100/63(88) NSR (Missing) 9(A) Medications Time Medication Route Dose Verified Delivered Reason Notes Effectiveness by by 10:34:05 Oxygen simple 6 Will Kranthi used for mask litlers/min [facility] Mike Chun RN procedure MD 10:34:30 0.9% NaCl I.V. 100 ml/hr Will Crisostomo Per [facility] Mike Chun RN physician 10:34:45 Lidocaine 2% added 20ml vial Will Solis for local to [facility] anesthetic field MD HANDY 10:34:55 Heparin Flush added 1 bags Will Solis used for Bag to [facility] procedure (1000units/500ml field MD HANDY NS) 10:40:31 Versed I.V. 1 mg [address] for [facility] Mike Chun RN sedation 10:40:36 Fentanyl I.V. 50 mcg Will Crisostomo for [facility] Mike Chun RN sedation 10:45:42 Versed I.V. 1 mg Will [address]ie for [facility] Mike Chun RN sedation 10:45:45 Fentanyl I.V. 50 mcg Will Crisostomo for [facility] RN sedation Procedure Log Time Note 10:06:13 Diagnostic Cath Status : Emergency 10:06:34 Admit Source: Emergency department 10:06:57 Procedure Status PPM/ Gen Change/ Lead Revision/ Temp. 10:07:01 Kranthi Chun RN sent for patient. Start room use. 10:07:26 Time tracking: Regular hours (M-F 7:00 - 5:00) 10:07:30 Plan of Care:Hemodynamics will remain stable., Cardiac rhythm will remain stable., Comfort level will be maintained., Respiratory function will remain adequate., Patient/ family verbilizes understanding of procedure., Procedure tolerated without complication., Recovers from procedure without complications.. 10:07:41 H&P Date Dictated: 11/05/2019 Emergent; H&P N/A. 10:07:42 Pre-procedure instructions explained to patient. 10:07:43 Pre-op teaching completed and patient verbalized understanding. 10:07:45 Family unavailable. 10:07:46 Patient NPO since Midnight. 10:07:52 Patient allergic to No known allergies 10:07:58 Alarms reviewed by R. N. 10:07:59 Sharps counted by scrub and verified by R.N. 10:08:19 Informed consent obtained and on chart 10:09:13 Arrival Date: 11/05/2019 12:00:00 AM 10:09:23 Patient Height : 71 inches 10:09:29 Patient Weight : 170 lbs 10:09:41 Insurance Payor : Medicare 10:: Lab Result : Troponin l 0.017 ng/ml : Lab Result : Hemoglobin 11.6 g/dl : Lab Result : eGFR NONAFRICAN 38 ml/min :: Lab Result : BUN 48 mg/dl : Lab Result : Creatinine 1.8 mg/dl : Lab Result : CK-MB 2.2 ng/ml : Lab Result : Hematocrit 36.9 % 10::58 Patient received from ED to [facility] 3 Alert and oriented. Tansferred to table in Supine position. 10:31:12 Vital chart was started 10:34:05 Oxygen 6 litlers/min simple mask was administered by Kranthi Chun RN; used for procedure; Verbal order read back and verified. 10:34:30 0.9% NaCl 100 ml/hr I.V. was administered by Kranthi Chun RN; Per physician; Verbal order read back and verified. 10:34:45 Lidocaine 2% 20ml vial added to field was administered by Will Rawls MD; for local anesthetic; Verbal order read back and verified. 10:34:55 Heparin Flush Bag (1000units/500ml NS) 1 bags added to field was administered by Will Rawls MD; used for procedure; Verbal order read back and verified. 10:36:00 Pt transported from emergency dept with tiffanie Jaeger whom has signed consent form due to pt having dementia. 10:37:21 Warm blankets applied, and jonathan hugger turned on for patient comfort. 10:37:22 Correct patient and procedure confirmed by team. 10:37:22 ECG and BP/O2 sat monitors applied to patient. 10:37:24 Baseline sample Acquired. 10:37:25 Full Disclosure recording started 10:37:33 Baseline sample Acquired. 10:37:36 Rhythm: sinus bradycardia 10:37:41 Is patient on blood thinner?No 10:37:44 Patient diabetic? No. 10:37:47 If diabetic: On Metformin? N/A 10:37:48 ----Pre-sedation anethsthesia assessment.---- 10:37:50 Previous problem with sedation/anesthesia? No ? 10:37:51 Snore? Yes 10:37:54 Sleep apnea? No 10:37:55 Deviated septum? No 10:38:01 Opens mouth fully? Yes 10:38:02 Sticks out tongue? Yes 10:38:06 Airway obstruction? Unknown ? 10:38:08 Dentures? No ? 10:38:13 Patient pain scale 0/10 ?. 10:38:31 IV patent on arrival in right antecubital with 0.9% NaCl at [facility]. 10:38:36 Lab results completed and on chart. 10:38:39 Stress Test: no; N/A ? 10:38:44 Right groin area was prepped with chlora-prep and draped in sterile fashion 10:38:47 Use device set Femoral Dx 10:38:49 ACIST Syringe (87743) opened to sterile field. 10:38:50 Bag Decanter (2002S) opened to sterile field. 10:38:50 Medline Cath Pack ([id number]) opened to sterile field. 10:38:51 ACIST Hand Control (06939) opened to sterile field. 10:38:52 ACIST Manifold (57164) opened to sterile field. 10:38:52 DIAGNOSTIC Multipack 5Fr catheter set ([id number]) opened to sterile field. 10:38:54 SHEATH 5FR Beaver Dams (LVX180) opened to sterile field. 10:38:54 EMERALD Guide Wire (548-553) opened to sterile field. 10:39:12 Use device set Temporary Pacemaker 10:39:19 SHEATH 6FR [place] (OCI214) opened to sterile field. 10:39:21 2-0 Silk 685H opened to sterile field. 10:39:22 5Fr J Tip Temporary Pacing Catheter ([id number]) opened to sterile field. 10:39:29 --------ALL STOP TIME OUT------ 10:39:30 Final Timeout: patient, procedure, and site verified with staff and physician. All members of the team are in agreement. 10:39:32 Right groin site verified by team. 10:39:36 Fire Safety Assessment: A--An alcohol-based skin anteseptic being used preoperatively., C--Open oxygen or nitrous oxide is being used., D--An ESU, laser, or fiber-optic light is being used. 10:39:39 Physical assessment completed. ASA score P 2 - A patient with mild systemic disease as per Will Rawls MD. 10:39:47 Sedation plan: IV Moderate Sedation Medication:Versed, Fentanyl 10:40:00 3b) 30-44 Moderately reduced kidney function. 10:40:03 Maximum allowable contrast dose (3.7 X eGFR X 0.75)92 ml. 10:40:10 Procedure started. 10:40:12 Baseline sample Acquired. 10:40:20 Local anesthetic to right femoral artery with Lidocaine 2% by Will Rawls MD.INITIAL ACCESS ONLY 10:40:31 Versed 1 mg I.V. was administered by Kranthi Chun RN; for sedation; Verbal order read back and verified. 10:40:36 Fentanyl 50 mcg I.V. was administered by Kranthi Chun RN; for sedation; Verbal order read back and verified. 10:40:43 A 6 Fr Short sheath was inserted into the Right Femoral artery 10:41:43 IV Extension Set opened to sterile field. 10:43:02 Temporary pacer inserted 10:45:42 Versed 1 mg I.V. was administered by Kranthi Chun RN; for sedation; Verbal order read back and verified. 10:45:45 Fentanyl 50 mcg I.V. was administered by Kranthi Chun RN; for sedation; Verbal order read back and verified. 10:48:20 34cc IABP inserted into the RFA . 10:48:23 Temporary pacer turned on with the following settings: Rate 70, MA 3, Sensitivity ?. 10:50:07 Sheath removed intact; hemostasis achieved with Sheath sutured in place to the Right Femoral artery. 10:50:15 Procedure ended.(Physican Out) 10:50:41 Fluoroscopy time 00.70 minutes. 10:50:50 Flurop Dose total: 20.1 10:50:50 Fluoroscopy dose: 20.1 mGy 10:50:55 Dose Area Product 2947 mGy/cm. 10:51:00 Contrast amount:Isovue 370 0ml. 10:51:05 Maximum allowable dose exceeded? No. 10:51:06 Sharps counted by scrub and verified by R.N. 10:51:24 Post-op/insertion site Right Femoral artery dressed using a 4 x 4 and Tegaderm. 10:51:32 Post right femoral artery:stable, soft, clean and dry 10:51:34 Post Procedure Pulses reassessed and unchanged 10:51:39 Post-procedure physical assessment completed. ASA score P 2 - A patient with mild systemic disease as per Will Rawls MD. 10:51:44 Post procedure rhythm: sinus rhythm 10:51:48 Post procedure rhythm: paced 10:51:52 Estimated blood loss: 10 ml 10:51:54 Post procedure instruction explained to patient.Patient verbalizes understanding. 10:51:54 Patient needs reinforcement of post procedure teaching. 10:53:21 Procedure and supply charges have been captured, reviewed, submitted and are correct. 10:53:26 Procedure Complication : No complications 10:53:38 Operative report dictated upon procedure completion. 10:53:39 See physician's report for complete and final results. 10:53:44 Report given to ICU. 10:53:50 Patient transfered to ICU with Bed. 10:56:46 Vital chart was stopped 10:56:50 Procedure ended. 10:56:50 Full Disclosure recording stopped 10:56:53 End room use (Document Last) 11:07:12 End room use (Document Last) 11:07:37 End room use (Document Last) Device Usage Item Name Manufacture Quantity Catalog Hospital Part Current Minimal L ot# / Number Charge Number Stock Stock Serial# Code ACIST Acist 1 04245 129911 929097 864099 20 Syringe Medical (82261) Systems Inc Bag Microtek 1 2001S 597588 90041 850401 5 Decanter Medical Inc. () Medline Medline 1 [id number] 952326 69648 457003 5 Cath Pack ([id number]) ACIST Hand Acist 1 00321 942184 462786 385796 5 Control Medical (56839) Systems Inc ACIST Acist 1 66705 665081 447821 446898 5 Manifold Medical (81634) Systems Inc DIAGNOSTIC Cardinal 1 SF1659 967198 88224 875439 30 ChinaNetCloud 5Fr catheter set (QK2304) SHEATH 5FR Terumo 1 ETS992 833834 853621 075951 5 Beaver Dams (WKR259) EMERALD Cardinal 1 502-455 856935 139292 160666 5 Guide Wire Health (502-455) SHEATH 6FR Terumo 1 NGK635 569273 440711 532030 40 Beaver Dams (LWE634) 2-0 Silk Ethicon 1 685H 191617 11956 182269 5 685H 5Fr J Tip Carver 1 [id number] 453724 38670 496140 2 Temporary Lifesciences Pacing Catheter ([id number]) IV Hospira 1 31390-59 828612 89389 723609 5 Extension Set Signature Audit [place] Stage Time Signature Unsigned Intra-Procedure 11/05/2019 Sarah Yanez 11:07:12 AM RT(R) Intra-Procedure 11/05/2019 Kranthi Chun RN 11:07:37 AM Intra-Procedure 11/05/2019 Will Bain 11:08:01 AM Mike [address]Y [address] [place] [address]
[~2019-11-05 07:44] MED LIST changes: +ACETAMINOPHEN325 MG PO; +CALCIUM 600 +1 EAC3 PO; +CENTRUM MEN'S1 EACH PO; +DEPAKOTE ER500 MG PO; +IBUPROFEN400 MG PO; +VITAMIN D5000 UNIT PO
[2019-11-05 08:42] LABS: BASOPHILS 0.2 % (0-2); EOSINOPHILS 1.6 % (0-7); HEMATOCRIT 36.9 % (42.0-54.0); HEMOGLOBIN 11.6 g/dL (13.5-17.5); IMMATURE GRANULOCYTES 0.1 % (0-5); LYMPHOCYTES 25.6 % (15-50); MCH 32.4 pg (26.0-34.0); MCHC 31.4 g/dL (31.0-37.0); MCV 103.1 fL (80.0-100.0); MEAN PLATELET VOLUME 11.2 fL (7.4-10.4); MONOCYTES 12.9 % (2-11); NEUTROPHILS 59.6 % (40-80); PLATELET COUNT 209 10x3/uL (130-400); RBC 3.58 10x6/uL (4.20-6.10); RDW 15.2 % (11.5-14.5); WBC 8.4 10x3/uL (4.8-10.8)
[2019-11-05 09:16] LABS: APTT 36.3 SECONDS (22.8-39.4); INR 1.07 (0.85-1.17); PROTIME 13.9 SECONDS (11.6-15.0)
[2019-11-05 09:24] LABS: ALBUMIN 3.4 g/dL (3.4-5.0); ALKALINE PHOSPHATASE 65 U/L (30-120); ALT (SGPT) 32 U/L (10-68); BILIRUBIN - TOTAL 0.46 mg/dL (0.2-1.3); CALC OSMOLALITY 310 mosm/kg (275-300); CALCIUM 9.3 mg/dL (8.5-10.1); CARBON DIOXIDE 28.6 mmol/L (21.0-32.0); CKMB 2.2 U/L (0.0-3.6); CREATINE KINASE 125 UL (21-232); CREATININE - SERUM 1.8 mg/dL (0.6-1.3); GLUCOSE 101 mg/dL (74-106); MAGNESIUM - SERUM 2.6 mg/dL (1.8-2.4); POTASSIUM - SERUM 5.9 mmol/L (3.5-5.1); PROTEIN - SERUM 6.6 g/dL (6.4-8.2); SODIUM 150 mmol/L (136-145); TROPONIN-I < 0.017 ng/mL (0.000-0.060); UREA NITROGEN 48 mg/dL (7-18); eGFR NON AFRICAN AMERICAN 38 mL/min (90-120)
[2019-11-05 09:25] LABS: CHLORIDE - SERUM 114 mmol/L (98-107)
--- NOTE | 2019-11-05 11:45 | NUR ---
PT RECEIVED FROM OPERATIONAL INTELLIGENCE ANALYST. BP 90/51 HR 70 PACED VIA TPM. TPM VVI 70 VMA 3 SENSITIVITY 2. R GROIN TPM WIRE SITE CDI NO HEMATOMA BRUISING SWELLING OR BLEEDING NOTED. EXTREMETY PINK WITH GOOD SENSATION. BILAT PEDAL PULSES WEAK. +1 EDEMA NOTED. O2 VIA RA O2 SAT 100% PT SEDATED SLEEPING AWAKENS BY TOUCH AND VERBAL CUES. BILAT WRIST RESTRAINTS IN PLACE PER OPERATIONAL INTELLIGENCE ANALYST. VSS NURSE AT BEDSIDE WILL CONTINUE TO MONITOR
[2019-11-05] MEDS ORDERED: REMERON15 MG PO (12:21)
--- NOTE | 2019-11-05 14:57 | NUR ---
DR ÁLVAREZ ROUNDED ON PT.
--- NOTE | 2019-11-05 18:09 | NUR ---
PT AWAKE AND CONFUSED. ATTEMPTED TO REORIENT AND EXPLAIN WHY HE NEEDS TO KEEP HIS LEG STRAIGHT. WILL MONITOR.
--- NOTE | 2019-11-05 22:10 | NUR ---
pt combative with care, attempting to climb out of bed, pulling at tubes, called silvestre chavez apn, order recieved for janes cota
[2019-11-06] VITALS (17 sets, daily range): BP systolic 90–161; BP diastolic 54–798; Ht 180.3 cm; Wt 89.0 kg
--- NOTE | 2019-11-06 | NUR ---
pt resting quietly, noncombative at this time
[2019-11-06 04:22] LABS: BASOPHILS 0.1 % (0-2); EOSINOPHILS 2.1 % (0-7); HEMATOCRIT 37.6 % (42.0-54.0); HEMOGLOBIN 11.9 g/dL (13.5-17.5); LYMPHOCYTES 25.6 % (15-50); MCH 31.8 pg (26.0-34.0); MCHC 31.6 g/dL (31.0-37.0); MEAN PLATELET VOLUME 12.2 fL (7.4-10.4); MONOCYTES 12.3 % (2-11); NEUTROPHILS 59.9 % (40-80); PLATELET COUNT 220 10x3/uL (130-400); RBC 3.74 10x6/uL (4.20-6.10); RDW 14.7 % (11.5-14.5); WBC 8.1 10x3/uL (4.8-10.8)
[2019-11-06 04:28] LABS: MCV 100.5 fL (80.0-100.0)
[2019-11-06 04:36] LABS: ANION GAP 13.2 mmol/L (8-16); CALCIUM 8.7 mg/dL (8.5-10.1); CARBON DIOXIDE 27.9 mmol/L (21.0-32.0); POTASSIUM - SERUM 5.1 mmol/L (3.5-5.1)
[2019-11-06 04:51] LABS: CREATININE - SERUM 1.3 mg/dL (0.6-1.3)
--- NOTE | 2019-11-06 13:37 | OP ---
PATIENT NAME: CHYNA DRAKE MEDICAL RECORD: [id number] :[birth year] LOCATION[facility] D.2304 ADMISSION DATE:11/05/19 SURGEON: OSKAR VARELA MD DATE OF OPERATION: 11/05/2019 PROCEDURE: Temporary pacemaker placement. DESCRIPTION OF PROCEDURE: After the right femoral vein was cannulated via modified Seldinger technique, the temporary pacemaker was placed through the level of the IVC after the RV apex without difficulty. After adequate thresholds were obtained, the temporary wire sutured in place and the patient was transferred to the ICU. IMPRESSION: Successful temporary pacemaker. Long discussion with and granddaughter about quality of life in this gentleman, etc, I am not sure of their ability to take care of a permanent pacemaker in of itself as well as doubt this would improve quality of life and mentation, etc. I believe they are leaning towards hospice at this point. I will leave the temporary in for the present time. TRANSINT:[id number] Voice Confirmation ID: [id number] DOCUMENT ID: [id number] OSKAR VARELA MD at 1337 CC: [id number] DICTATION DATE: 11/05/19 1115 COMPUTER EQUIPMENT INSTALLER: 11/05/19 2136 ADM IN [facility] [address] [id number]
--- NOTE | 2019-11-06 19:47 | MORECARE ---
CASE MANAGEMENT DISCHARGE SUMMARY PATIENT: CHYNA DRAKE UNIT: [id number] ADM DATE: 11/05/19 AGE: 84 : 37 SEX: M ROOM/BED: D.2304 AUTHOR: HERLINDA BLAKE PHYSICIAN: REFERRING PHYSICIAN: RANDY ÁLVAREZ MD DATE OF SERVICE: 11/06/19 Discharge Plan Patient Name: CHYNA DRAKE [facility] [facility] 1935 Planned Disposition: Hospice Medical Facility Anticipated Discharge Date: Discharge Date: 11/06/2019 Expected LOS: Initial Reviewer: [email or web address] Initial Review Date: 11/05/2019 Generated: 11/06/19 8:47 pm External Providers External Provider: Shaina at [facility] Next Contact Date: Service Request Date: Service Type: Resolution: Reviewer: Comments: Patient Name: CHYNA DRAKE Page 85533 at 1947 All edits/amendments must be made on the electronic document DICTATION DATE: 11/06/191946 MOTION STUDY TECHNICIAN: SHADY 11/06/191946 RPT#: [id number] DC DATE:11/06/19 STATUS: DIS IN [facility] [address] [place] [address] END OF REPORT
--- NOTE | 2019-11-06 19:54 | MORECARE ---
CASE MANAGEMENT DISCHARGE SUMMARY PATIENT: CHYNA DRAKE UNIT: [id number] ADM DATE: 11/05/19 AGE: 84 : 37 SEX: M ROOM/BED: D.2304 AUTHOR: HAYDENDOC PHYSICIAN: REFERRING PHYSICIAN: RANDY ÁLVAREZ MD DATE OF SERVICE: 11/06/19 Discharge Plan Patient Name: CHYNA DRAKE Facility: [facility]:[place] : 1935 Planned Disposition: Hospice Medical Facility Anticipated Discharge Date: Discharge Date: 11/06/2019 Expected LOS: Initial Reviewer: [email or web address] Initial Review Date: 11/05/2019 Generated: 11/06/19 8:54 pm Comments DCP- Discharge Planning Updated by [email or web address]: Nickie Holguin on 11/06/19 6:[address] Patient Name: CHYNA DRAKE Admission Status: ER Accout number: [id number] Admission Date: 11-05-2019 : 1935 Admission Diagnosis: Attending: RANDY ÁLVAREZ Current LOS: 1 Anticipated DC Date: Planned Disposition: Hospice Medical Facility Primary Insurance: MEDICARE A & B Discharge Planning Comments: PATIENT IS A CARE HOME RESIDENT AT THE [facility]. CM NOTIFIED THAT PATIENT'S FAMILY AND PHYSICIAN WAS REQUESTING INPATIENT HOSPICE. [facility] WAS NOTIFIED AND RECORDS FAXED. CM WILL CONTINUE TO FOLLOW AND ASSIST NEEDED WITH DISCHARGE PLANNING / NEEDS. Social Media Editor: Nickie Holguin DCPIA - Discharge Planning Initial Assessment Updated by [email or web address]: Nickie Holguin on 11/06/19 7:47 pm * Is the patient Alert and Oriented? No * How many steps to enter\exit or inside your home? * PCP [facility] * Pharmacy [facility] * Preadmission Environment [facility] * Facility Name [facility] * ADLs Partial Dependent * Partial ADLs (Assistance needed) Ambulation Bathing Dressing Eating Medication Management Toileting Transfers * List name and contact numbers for known caregivers / representatives who currently or will assist patient after discharge: ORLY MOSHER- GRAND -DAUGHTER- [phone] * Verbal permission to speak to the caregivers and representatives has been obtained from the patient. N/A * Additional services required to return to the preadmission environment? No * Can the patient safely return to the preadmission environment? Yes * Has this patient been hospitalized within the prior 30 days at any hospital? No Last DP export: 11/06/19 6:47 p Patient Name: CHYNA DRAKE Page 69118 at 1953 All edits/amendments must be made on the electronic document DICTATION DATE: 11/06/191953 COMMODITY SPECIALIST: SHADY 11/06/191953 RPT#: [id number] DC DATE:11/06/19 STATUS: DIS IN [facility] [address] [place] [address] END OF REPORT
--- NOTE | 2019-11-07 09:11 | MORECARE ---
CASE MANAGEMENT DISCHARGE SUMMARY PATIENT: CHYNA DRAKE UNIT: [id number] ADM DATE: 11/05/19 AGE: 84 : 37 SEX: M ROOM/BED: D.2304 AUTHOR: HAYDENDOC PHYSICIAN: REFERRING PHYSICIAN: RANDY ÁLVAREZ MD DATE OF SERVICE: 11/07/19 Discharge Plan Patient Name: CHYNA DRAKE Facility: [facility]:[place] : 1935 Planned Disposition: Hospice Medical Facility Anticipated Discharge Date: Discharge Date: 11/06/2019 Expected LOS: Initial Reviewer: [email or web address] Initial Review Date: 11/05/2019 Generated: 11/07/19 10:11 am Comments DCP- Discharge Planning Updated by [email or web address]: Nickie Holguin on 11/06/19 6:[address] Patient Name: CHYNA DRAKE Admission Status: ER Accout number: [id number] Admission Date: 11-05-2019 : 1935 Admission Diagnosis: Attending: RANDY ÁLVAREZ Current LOS: 1 Anticipated DC Date: Planned Disposition: Hospice Medical Facility Primary Insurance: MEDICARE A & B Discharge Planning Comments: PATIENT IS A [facility] RESIDENT AT THE [facility]. CM NOTIFIED THAT PATIENT'S FAMILY AND PHYSICIAN WAS REQUESTING INPATIENT HOSPICE. [facility] WAS NOTIFIED AND RECORDS FAXED. CM WILL CONTINUE TO FOLLOW AND ASSIST NEEDED WITH DISCHARGE PLANNING / NEEDS. Vacuum Cleaner Repairer: Nickie Holguin DCPIA - Discharge Planning Initial Assessment Updated by [email or web address]: Nickie Holguin on 11/06/19 7:47 pm * Is the patient Alert and Oriented? No * How many steps to enter\exit or inside your home? * PCP [facility] * Pharmacy [facility] * Preadmission Environment [facility] * Facility Name [facility] * ADLs Partial Dependent * Partial ADLs (Assistance needed) Ambulation Bathing Dressing Eating Medication Management Toileting Transfers * List name and contact numbers for known caregivers / representatives who currently or will assist patient after discharge: ORLY MOSHER- GRAND -DAUGHTER- [phone] * Verbal permission to speak to the caregivers and representatives has been obtained from the patient. N/A * Additional services required to return to the preadmission environment? No * Can the patient safely return to the preadmission environment? Yes * Has this patient been hospitalized within the prior 30 days at any hospital? No Last DP export: 11/06/19 6:54 p Patient Name: CHYNA DRAKE Page 43743 at 0911 All edits/amendments must be made on the electronic document DICTATION DATE: 11/07/19910 METAL TESTER: SHADY 11/07/19910 RPT#: [id number] DC DATE:11/06/19 STATUS: DIS IN [facility] [address] [place] [address] END OF REPORT
== END 2019-11-06 19:28 | disposition hospice, inpatient (51) | DRG 308 ==
LOC: D.ER 07:44 → D.ICU 12:00
PROVIDERS: Family Medicine; Internal Medicine Interventional Cardiology; ADMIT Legal Medicine; ATTEND Legal Medicine
PROC: 5A1223Z Performance of Cardiac Pacing, Continuous (ICD-10-PCS; principal; 2019-11-05 10:07)
DX: I44.1 Atrioventricular block, second degree (principal); R40.2214 Coma scale, best verbal response, none, 24 hours or more after hospital admission; R40.2344 Coma scale, best motor response, flexion withdrawal, 24 hours or more after hospital admission; R40.2124 Coma scale, eyes open, to pain, 24 hours or more after hospital admission; E87.0 Hyperosmolality and hypernatremia; N17.9 Acute kidney failure, unspecified; F03.90 Unspecified dementia, unspecified severity, without behavioral disturbance, psychotic disturbance, mood disturbance, and anxiety; I10 Essential (primary) hypertension; D64.9 Anemia, unspecified; E87.5 Hyperkalemia; K21.9 Gastro-esophageal reflux disease without esophagitis; R45.1 Restlessness and agitation

== ENCOUNTER 2019-11-06 20:05 | Inpatient (IN) | payer OTHER ==
[~2019-11-06] VITALS: Ht 180.3 cm; Wt 88.9 kg
[~2019-11-06 20:05] MED LIST changes: +REMERON15 MG PO
[2019-11-06 20:08] VITALS: BP 129/68; BMI 27.4
[2019-11-06 21:00] VITALS: BP 82/75
--- NOTE | 2019-11-06 21:15 | MORECARE ---
CASE MANAGEMENT DISCHARGE SUMMARY PATIENT: CHYNA DRAKE UNIT: [id number] ADM DATE: 11/06/19 AGE: 84 : 37 SEX: M ROOM/BED: D.2304 AUTHOR: HERLINDA BLAKE PHYSICIAN: REFERRING PHYSICIAN: RANDY ÁLVAREZ MD DATE OF SERVICE: 11/06/19 Discharge Plan Patient Name: CHYNA DRAKE Facility: [facility]:[place] : 1935 Planned Disposition: Anticipated Discharge Date: Discharge Date: Expected LOS: Initial Reviewer: [email or web address] Initial Review Date: 11/06/2019 Generated: 11/06/19 10:14 pm Patient Name: CHYNA DRAKE Page 99162 at 2115 All edits/amendments must be made on the electronic document DICTATION DATE: 11/06/192113 SYNTHETIC DEPARTMENT SUPERVISOR: SHADY 11/06/192113 RPT#: [id number] DC DATE: STATUS: ADM IN [facility] [address] [place] [address] END OF REPORT
[2019-11-07 03:00] VITALS: BP 146/68
[2019-11-07 07:00] VITALS: BP 145/70
[2019-11-07 12:59] VITALS: Ht 180.3 cm; Wt 88.9 kg
--- NOTE | 2019-11-07 21:01 | NUR ---
[facility] VITALS STABLE WITH A HR OF 47. PT WAS GIVEN A BEDBATH AND LINEN CHANGE UPON ARRIVAL. GRANDAUGHTER AT BEDSIDE. AND IN ROOM 210. GRANDDAUGHTER LEFT CONTACT NUMBER- EDITH CABELLOTVID-[phone] FOR ANY FURTHER INFORMATION/CONTACT THAT WE MAY NEED. PT IS RESTING WITH SNORING DEEP BREATH SOUNDS. PT IS COMFORTABLE AND W/O DISTRESS. WILL CONTINUE TO MONITOR.
[2019-11-08 07:49] VITALS: BP 150/62
--- NOTE | 2019-11-08 19:00 | NUR ---
PT ON CONT MORAPHINE AND ATIVAN Q2 NEEDED BED LOW AND LOCKED AND MULTIPLE FAMILY IS AT BEDSIDE
[2019-11-08 20:00] VITALS: BP 153/76
[2019-11-09] VITALS: BP 150/67
[2019-11-09 04:00] VITALS: BP 155/75
[2019-11-09 08:00] VITALS: BP 110/62
--- NOTE | 2019-11-09 19:30 | NUR ---
PT IN BED, EYES CLOSED, RESP EVEN AND UNLABORED. PT ON HOSPICE, FAMILY AT BEDSIDE, CL IN REACH, SR UP X 2.
[2019-11-09 20:00] VITALS: BP 111/48
--- NOTE | 2019-11-10 03:40 | NUR ---
PT WITH NO RESP OR PULSE AT THIS TIME. [facility] NURSE NOTIFED.
--- NOTE | 2019-11-10 03:55 | NUR ---
HOSPICE/[facility] NOTIFIED THAT PT HAS . MAIKEL WILL BE HERE TO PRONOUNCE.
--- NOTE | 2019-11-12 09:28 | MORECARE ---
CASE MANAGEMENT DISCHARGE SUMMARY PATIENT: CHYNA DRAKE UNIT: [id number] ADM DATE: 11/06/19 AGE: 84 : 37 SEX: M ROOM/BED: D.2104 AUTHOR: HERLINDA BLAKE PHYSICIAN: REFERRING PHYSICIAN: RANDY ÁLVAREZ MD DATE OF SERVICE: 11/12/19 Discharge Plan Patient Name: CHYNA DRAKE [facility] [facility] 1935 Planned Disposition: Anticipated Discharge Date: Discharge Date: 11/10/2019 Expected LOS: Initial Reviewer: [email or web address] Initial Review Date: 11/06/2019 Generated: 11/12/19 10:27 am Last DP export: 11/06/19 8:14 p Patient Name: CHYNA DRAKE Page 89847 at 0928 All edits/amendments must be made on the electronic document DICTATION DATE: 11/12/19927 BMET: SHADY 11/12/19927 RPT#: [id number] DC DATE:11/10/19 STATUS: DIS IN [facility] [address] [place] [address] END OF REPORT
== END 2019-11-10 04:50 | DRG 951 ==
LOC: D.M2 20:05 → D.ICU 20:05 → D.M2 11-07 21:08
PROVIDERS: ADMIT Legal Medicine; ATTEND Legal Medicine
DX: Z51.5 Encounter for palliative care (principal)